=== PATIENT | male | born 1970 | race Caucasian/White ===

== ENCOUNTER 2024-10-04 06:03 | Inpatient (IN) | payer BC ==
--- NOTE | 2024-10-04 06:28 | ED ---
SOB HPI - General Chief Complaint: Shortness of Breath Stated Complaint: Difficulty Breathing Time Seen by Provider: 10/04/24 06:24 Source: patient, family, RN notes reviewed Mode of arrival: wheelchair Limitations: no limitations - History of Present Illness Initial Comments: 53-year-old male with a past medical history significant of asthma and hypert ension presenting to the ER for evaluation of shortness of breath. He reports over the past couple of days he has had progressively worsening shortness of breath. Family, at bedside, states he is having difficulty even walking from living room to bathroom without feeling short of breath. Patient has tried inhaler without relief of symptoms. He denies any chest discomfort, dizziness, lightheadedness. Patient denies history of DVTs or PEs. No blood thinner use or recent travel. No history of CT or cardiac stent placement. No home oxygen use. Positive orthopnea. Patient states he has not been able to follow-up with PCP given insurance issues. He denies any fevers, chills, cough, congestion, sore throat, nausea/vomiting, abdominal pain, constipation/diarrhea, urinary complaints, peripheral edema. Patient does report he has a known valve issue this was evaluated at [facility]. He does follow-up with cardiology, Dr. Ngo. Admits to smoking. - Related Data Home Medications Medication Instructions Recorded Confirmed No Known Home Medications 10/04/24 10/04/24 Allergies Allergy/AdvReac Type Severity Reaction Status Date / Time ibuprofen [From Motrin] Allergy congestion Verified 10/04/24 08:56 & sneezing iodine Allergy Anaphylaxis Verified 10/04/24 08:56 to Shellfish shellfish derived [Shellfish] Allergy Anaphylaxis Verified 10/04/24 08:56 Review of Systems ROS Statement: Those systems with pertinent positive or pertinent negative responses have been documented in the HPI. ROS Other: All systems not noted in ROS Statement are negative. Past Medical History Past Medical History: Hypertension History of Any Multi-Drug Resistant Organisms: None Reported Past Surgical History: Hernia Repair Past Psychological History: No Psychological Hx Reported Smoking Status: Current some day smoker, Former smoker Past Alcohol Use History: None Reported Past Drug Use History: None Reported General Exam Limitations: no limitations General appearance: alert, in no apparent distress ENT exam: Present: normal exam, normal oropharynx, mucous membranes moist Respiratory exam: Present: wheezes (Mild throughout all lung carreon) Cardiovascular Exam: Present: regular rate, normal rhythm, normal heart sounds. Absent: systolic murmur, diastolic murmur, rubs, gallop, clicks Extremities exam: Present: normal inspection, full ROM, normal capillary refill. Absent: tenderness, pedal edema, joint swelling, calf tenderness Neurological exam: Present: alert, oriented X3, CN II-XII intact Skin exam: Present: warm, dry, intact, normal color. Absent: rash Course Vital Signs 10/04/24 10/04/24 10/04/24 06:05 06:23 06:36 Temperature 97.7 F Pulse Rate 98 85 Respiratory 20 22 20 Rate Blood Pressure 165/108 O2 Sat by Pulse 98 Oximetry 10/04/24 10/04/24 10/04/24 06:42 07:16 08:42 Temperature 98.1 F Pulse Rate 87 87 92 Respiratory 18 18 18 Rate Blood Pressure 162/113 165/115 O2 Sat by Pulse 94 L 96 Oximetry 10/04/24 09:26 Temperature Pulse Rate 93 Respiratory 16 Rate Blood Pressure 168/127 O2 Sat by Pulse 97 Oximetry - Reevaluation(s) Reevaluation #1: 10/04/24 09:27 Discussed with sound physician, , for admission. Medical Decision Making - Medical Decision Making Was pt. sent in by a medical professional or institution (Dr. PA, VAT OVERHAULER, urgent care, hospital, or senior care...) When possible be specific @ -No Did you speak to anyone other than the patient for history (EMS, parent, family, police, friend...)? What history was obtained from this source @ -Family, at bedside, aiding in HPI and past medical history Did you review nursing and triage notes (agree or disagree)? Why? @ -I reviewed and agree with nursing and triage notes Were old charts reviewed (outside hosp., previous admission, EMS record, old EKG, old radiological studies, urgent care reports/EKG's, senior care records)? Report findings @ -No old charts were reviewed Differential Diagnosis (chest pain, altered mental status, abdominal pain women, abdominal pain men, vaginal bleeding, weakness, fever, dyspnea, syncope, headache, dizziness, GI bleed, back pain, seizure, CVA, palpatations, mental health, musculoskeletal)? @ -Differential Dyspnea:Coronary syndrome, arrhythmia, tamponade, asthma, COPD, pulmonary embolism, pneumonia, pneumothorax, pulmonary effusion, anaphylaxis, diabetic ketoacidosis, flailed chest, pulmonary contusion, diaphragmatic rupture, anemia, neuromuscular, this is not meant to be an all-inclusive list. EKG interpreted by me (3pts min.). @ -As above X-rays interpreted by me (1pt min.). @ -CXR Interdry me markable for pulmonary vascular congestion CT interpreted by me (1pt min.). @ -CTA chest negative for acute evidence of pulmonary embolism. Small bilateral effusions with bilateral areas of groundglass opacities likely reflecting alveolar edema. Focal 1.1 cm left midlung nodule or nodular consolidation. U/S interpreted by me (1pt. min.). @ -None done What testing was considered but not performed or refused? (CT, X-rays, U/S, labs)? Why? @ -None What meds were considered but not given or refused? Why? @ -None Did you discuss the management of the patient with other professionals (professionals i.e. , PA, VAT OVERHAULER, lab, RT, psych nurse, social work professor, silver wrapper, teacher, veterinary medical officer, rifle case repairer)? Give summary @ -Yes, case discussed with sound physician, Dr. Nesbitt for admission. Was smoking cessation discussed for >3mins.? @ -I discussed smoking cessation for greater than 3 minutes. The risk of smoking were discussed with the patient including but not limited to risks of cancer, stroke, coronary artery disease and COPD. Also discussed with patient were multiple methods of quitting smoking. Lastly we discussed the financial cost of smoking. Was critical care preformed (if so, how long)? @ -No Were there social determinants of health that impacted care today? How? (Homelessness, low income, unemployed, alcoholism, drug addiction, transportation, low edu. Level, literacy, decrease access to med. care, fdc, rehab)? @ -Patient recently has been uninsured and unable to follow-up with PCP Was there de-escalation of care discussed even if they declined (Discuss DNR or withdrawal of care, Hospice)? DNR status @ -No What co-morbidities impacted this encounter? (DM, HTN, Smoking, COPD, CAD, Cancer, CVA, ARF, Chemo, Hep., AIDS, mental health diagnosis, sleep apnea, morbid obesity)? @ -Hypertension, asthma, valvular disorder(patient unsure details of this) Was patient admitted / discharged? Hospital course, mention meds given and route, prescriptions, significant lab abnormalities, going to OR and other pertinent info. @ -Admitted. 53-year-old male presented the ER for evaluation of dyspnea. Patient hypertensive 165/108 is otherwise within acceptable limits. Patient had no signs of acute distress nontoxic-appearing. No conversational dyspnea. There is wheezing noted in all lung carreon. Laboratory studies obtained in the ER consistent with fluid overloaded state, BNP 11,400. Elevated troponin 0.064. D-dimer also elevated 1.39 for which CTA chest was obtained and negative for acute evidence of PE. CTA significant for bilateral pleural effusions with a lveolar edema. There is a lung nodule noted advising close follow-up. Patient was premedicated with IV Solu-Medrol, Pepcid and Benadryl given iodine allergy for CTA. Chest x-ray significant for pulmonary vascular congestion. Patient provided with DuoNeb, aspirin and IV Lasix. Fluids held given fluid overloaded state. Upon reevaluation, patient resting comfortably on stretcher no signs of acute distress. Patient 98% on room air. As patient complaining of continued shortness of breath patient was placed on 2 L nasal cannula oxygen for comfort not hypoxic. Patient educated on today's findings including possibility of lung nodule and is agreeable for admission. Admission considered and accepted by sound physician, , for evaluation of CHF. Echocardiogram and serial troponins ordered. Cardiology on consult. Patient admitted in stable condition. Case discussed with ED attending, Dr. Rosenthal Undiagnosed new problem with uncertain prognosis? @ -No Drug Therapy requiring intensive monitoring for toxicity (Heparin, Nitro, Insulin, Cardizem)? @ -No Were any procedures done? @ -No Diagnosis/symptom? @ -CHF/elevated troponin Acute, or Chronic, or Acute on Chronic? @ -Acute Uncomplicated (without systemic symptoms) or Complicated (systemic symptoms)? @ -Complicated Side effects of treatment? @ -No Exacerbation, Progression, or Severe Exacerbation? @ -No Poses a threat to life or bodily function? How? (Chest pain, USA, CT, pneumonia, PE, COPD, DKA, ARF, appy, cholecystitis, CVA, Diverticulitis, Homicidal, Suicidal, threat to staff... and all critical care pts) @ -Yes, can lead to hypoxia. cannot rule out ACS - Lab Data Result diagrams: 10/04/24 06:15 10/04/24 06:15 Lab Results 10/04/24 10/04/24 10/04/24 Range/Units 06:15 06:15 06:15 WBC 8.28 (4.50-10.00) 10*3/uL RBC 4.55 (4.40-5.60) 10*6/uL Hgb 12.9 L (13.0-17.0) g/dL Hct 41.2 (39.6-50.0) % MCV 90.5 (80.0-97.0) fL MCH 28.4 (27.0-32.0) pg MCHC 31.3 L (32.0-37.0) g/dL Plt Count 233 (140-440) 10*3/uL MPV 11.6 (9.5-12.2) fL Immature Gran % (Auto) 0.1 % Neutrophils % 66.8 % Lymphocytes % 18.4 % Monocytes % 6.9 % Eosinophils % 7.0 % Basophils % 0.8 % Immature Gran # 0.01 (0.00-0.04) 10*3/uL Neutrophils # 5.53 (1.80-7.70) 10*3/uL Lymphocytes # 1.52 (0.90-5.00) 10*3/uL Monocytes # 0.57 (0.20-1.00) 10*3/uL Eosinophils # 0.58 H (0.04-0.35) 10*3/uL Basophils # 0.07 (0.00-0.10) 10*3/uL PT 10.3 (10.0-12.5) sec INR 0.9 (<1.2) APTT 23.4 (22.0-30.0) sec D-Dimer 1.39 H (<0.60) mg/L FEU Sodium 143 (137-145) mmol/L Potassium 3.9 (3.5-5.1) mmol/L Chloride 114 H (98-107) mmol/L Carbon Dioxide 19 L (22-30) mmol/L Anion Gap 10 mmol/L BUN 27 H (9-20) mg/dL Creatinine 1.49 H (0.66-1.25) mg/dL Est GFR (CKD-EPI)AfAm 61 (>60 ml/min/1.73 sqM) Est GFR (CKD-EPI)NonAf 53 (>60 ml/min/1.73 sqM) Glucose 117 H (74-99) mg/dL Plasma Lactic Acid Tanner (0.7-2.0) mmol/L Calcium 8.8 (8.4-10.2) mg/dL Magnesium 1.9 (1.6-2.3) mg/dL Total Bilirubin 0.4 (0.2-1.3) mg/dL AST 52 (17-59) U/L ALT 62 H (4-49) U/L Alkaline Phosphatase 117 (38-126) U/L Troponin I (0.000-0.034) ng/mL NT-Pro-B Natriuret Pep pg/mL Total Protein 6.4 (6.3-8.2) g/dL Albumin 3.7 (3.5-5.0) g/dL Influenza Type A (PCR) (Not Detectd) Influenza Type B (PCR) (Not Detectd) RSV (PCR) (Not Detectd) SARS-CoV-2 (PCR) (Not Detectd) 10/04/24 10/04/24 10/04/24 Range/Units 06:15 06:15 06:15 WBC (4.50-10.00) 10*3/uL RBC (4.40-5.60) 10*6/uL Hgb (13.0-17.0) g/dL Hct (39.6-50.0) % MCV (80.0-97.0) fL MCH (27.0-32.0) pg MCHC (32.0-37.0) g/dL Plt Count (140-440) 10*3/uL MPV (9.5-12.2) fL Immature Gran % (Auto) % Neutrophils % % Lymphocytes % % Monocytes % % Eosinophils % % Basophils % % Immature Gran # (0.00-0.04) 10*3/uL Neutrophils # (1.80-7.70) 10*3/uL Lymphocytes # (0.90-5.00) 10*3/uL Monocytes # (0.20-1.00) 10*3/uL Eosinophils # (0.04-0.35) 10*3/uL Basophils # (0.00-0.10) 10*3/uL PT (10.0-12.5) sec INR (<1.2) APTT (22.0-30.0) sec D-Dimer (<0.60) mg/L FEU Sodium (137-145) mmol/L Potassium (3.5-5.1) mmol/L Chloride (98-107) mmol/L Carbon Dioxide (22-30) mmol/L Anion Gap mmol/L BUN (9-20) mg/dL Creatinine (0.66-1.25) mg/dL Est GFR (CKD-EPI)AfAm (>60 ml/min/1.73 sqM) Est GFR (CKD-EPI)NonAf (>60 ml/min/1.73 sqM) Glucose (74-99) mg/dL Plasma Lactic Acid Tanner 0.9 (0.7-2.0) mmol/L Calcium (8.4-10.2) mg/dL Magnesium (1.6-2.3) mg/dL Total Bilirubin (0.2-1.3) mg/dL AST (17-59) U/L ALT (4-49) U/L Alkaline Phosphatase (38-126) U/L Troponin I 0.064 H* (0.000-0.034) ng/mL NT-Pro-B Natriuret Pep 66539 pg/mL Total Protein (6.3-8.2) g/dL Albumin (3.5-5.0) g/dL Influenza Type A (PCR) (Not Detectd) Influenza Type B (PCR) (Not Detectd) RSV (PCR) (Not Detectd) SARS-CoV-2 (PCR) (Not Detectd) 10/04/24 Range/Units 06:54 WBC (4.50-10.00) 10*3/uL RBC (4.40-5.60) 10*6/uL Hgb (13.0-17.0) g/dL Hct (39.6-50.0) % MCV (80.0-97.0) fL MCH (27.0-32.0) pg MCHC (32.0-37.0) g/dL Plt Count (140-440) 10*3/uL MPV (9.5-12.2) fL Immature Gran % (Auto) % Neutrophils % % Lymphocytes % % Monocytes % % Eosinophils % % Basophils % % Immature Gran # (0.00-0.04) 10*3/uL Neutrophils # (1.80-7.70) 10*3/uL Lymphocytes # (0.90-5.00) 10*3/uL Monocytes # (0.20-1.00) 10*3/uL Eosinophils # (0.04-0.35) 10*3/uL Basophils # (0.00-0.10) 10*3/uL PT (10.0-12.5) sec INR (<1.2) APTT (22.0-30.0) sec D-Dimer (<0.60) mg/L FEU Sodium (137-145) mmol/L Potassium (3.5-5.1) mmol/L Chloride (98-107) mmol/L Carbon Dioxide (22-30) mmol/L Anion Gap mmol/L BUN (9-20) mg/dL Creatinine (0.66-1.25) mg/dL Est GFR (CKD-EPI)AfAm (>60 ml/min/1.73 sqM) Est GFR (CKD-EPI)NonAf (>60 ml/min/1.73 sqM) Glucose (74-99) mg/dL Plasma Lactic Acid Tanner (0.7-2.0) mmol/L Calcium (8.4-10.2) mg/dL Magnesium (1.6-2.3) mg/dL Total Bilirubin (0.2-1.3) mg/dL AST (17-59) U/L ALT (4-49) U/L Alkaline Phosphatase (38-126) U/L Troponin I (0.000-0.034) ng/mL NT-Pro-B Natriuret Pep pg/mL Total Protein (6.3-8.2) g/dL Albumin (3.5-5.0) g/dL Influenza Type A (PCR) Not Detected (Not Detectd) Influenza Type B (PCR) Not Detected (Not Detectd) RSV (PCR) Not Detected (Not Detectd) SARS-CoV-2 (PCR) Not Detected (Not Detectd) - EKG Data -: EKG Interpreted by Me EKG Comments: EKG taken at 6: 15 showing a sinus rhythm. Inverted T waves lateral leads. No ST segment elevations or depressions. Ventricular rate 86, MO interval 178, QRS duration 114, QT/QTc 383/426 - Radiology Data Radiology results: report reviewed, image reviewed Disposition Clinical Impression: Congestive heart failure, Elevated troponin Disposition: ADMITTED IP TO THIS HOSP Condition: Stable Referrals: None,Stated [Primary Care Provider] - 1-2 days Time of Disposition: 09:36
[2024-10-04] MEDS: IPRATROPIUM-ALBUTEROL 3 ML NEB INHALATION STA (06:35)
[2024-10-04 06:43] LABS: Basophils # (A) 0.07 10*3/uL (0.00-0.10); Basophils % (A) 0.8 %; Eosinophils # (A) 0.58 10*3/uL (0.04-0.35); HCT 41.2 % (39.6-50.0); HGB 12.9 g/dL (13.0-17.0); Lymphocytes # (A) 1.52 10*3/uL (0.90-5.00); Lymphocytes % (A) 18.4 %; MCH 28.4 pg (27.0-32.0); MCHC 31.3 g/dL (32.0-37.0); MCV 90.5 fL (80.0-97.0); Mean Platelet Volume 11.6 fL (9.5-12.2); Monocytes # (A) 0.57 10*3/uL (0.20-1.00); Monocytes % (A) 6.9 %; Neutrophils # (A) 5.53 10*3/uL (1.80-7.70); Neutrophils % (A) 66.8 %; Platelet Count 233 10*3/uL (140-440); RBC 4.55 10*6/uL (4.40-5.60); RDW 16.4 % (11.5-14.5); WBC 8.28 10*3/uL (4.50-10.00)
[2024-10-04 06:51] LABS: ALT 62 U/L (4-49); AST 52 U/L (17-59); African American GFR (CKD) 61 (>60 ml/min/1.73 sqM); Albumin 3.7 g/dL (3.5-5.0); Alkaline Phosphatase 117 U/L (38-126); Anion Gap 10 mmol/L; Blood Urea Nitrogen 27 mg/dL (9-20); Calcium 8.8 mg/dL (8.4-10.2); Carbon Dioxide 19 mmol/L (22-30); Chloride 114 mmol/L (98-107); Glucose 117 mg/dL (74-99); Magnesium 1.9 mg/dL (1.6-2.3); Non-African American GFR(CKD) 53 (>60 ml/min/1.73 sqM); Potassium 3.9 mmol/L (3.5-5.1); Sodium 143 mmol/L (137-145); Total Bilirubin 0.4 mg/dL (0.2-1.3); Total Protein 6.4 g/dL (6.3-8.2)
--- NOTE | 2024-10-04 06:58 | XR ---
EXAMINATION TYPE: XR chest 1V portable DATE OF EXAM: 10/04/2024 COMPARISON: NONE CLINICAL INDICATION: Male, 53 years old with history of difficulty breathing; TECHNIQUE: 2 frontal views of the chest are obtained. FINDINGS: There is cardiomegaly with some increased interstitial markings bilaterally. No pleural e ffusion or pneumothorax seen bilaterally. The osseous structures are intact. IMPRESSION: Cardiomegaly with suspected mild interstitial edema. Correlate for suspected CHF exacerb ation/fluid overload state. [facility], , 10/04/2024 6:56 AM
[2024-10-04 07:18] LABS: INR 0.9 (<1.2); Partial Thromboplastin Time 23.4 sec (22.0-30.0); Prothrombin Time 10.3 sec (10.0-12.5)
[2024-10-04 07:39] LABS: Influenza A Not Detected (Not Detectd); Influenza B Not Detected (Not Detectd); RSV Not Detected (Not Detectd)
[2024-10-04] MEDS: FAMOTIDINE 20 MG/2 ML VIAL IV STA (08:36)
[2024-10-04] MEDS: methylPREDNISolone SOD SUCCI 125 MG/2 ML VIAL IV STA (08:36)
[2024-10-04] MEDS: diphenhydrAMINE 50 MG/ML 1 ML VIAL IVP STA (08:36)
[2024-10-04] MEDS: ASPIRIN 325 MG TAB PO STA (08:37)
--- NOTE | 2024-10-04 09:13 | CT ---
EXAMINATION TYPE: CT chest angio for PE DATE OF EXAM: 10/04/2024 COMPARISON: NONE CLINICAL INDICATION: Male, 53 years old with history of SOB elevated dimer, SOB, elevated D-dimer., TECHNIQUE: CTA scan of the thorax is performed with IV Contrast, patient injected with 80 ml mL of Isovue 370, p ulmonary embolism protocol. MIP Images are created on CT scanner and reviewed. CT DLP: 822.9 mGycm. Automated Exposure Control for Dose Reduction was Utilized. FINDINGS: LUNGS: Small bilateral pleural effusions are seen. There are areas of groundglass opacity noted. Ther e is 11 mm nodule or nodular consolidation in left midlung axial image 76. No pneumothorax seen bilat erally. HEART: Size within normal limits. No significant coronary artery calcifications. MEDIASTINUM: There is satisfactory enhancement of the pulmonary artery and its branches, there is no CT evidence for pulmonary embolism. There are some prominent mediastinal lymph nodes. No pericardi al effusion is seen. OTHER: No additional significant abnormality is seen. IMPRESSION: 1. No CT evidence for acute pulmonary embolism. 2. Small bilateral pleural effusions with bilateral areas of ground glass opacity likely reflecting m ild alveolar edema. Findings consistent with fluid overload state. Correlate clinically. 3. Focal 1.1 cm left midlung nodule or nodular consolidation. Possible focal infiltrate/edema but volodymyr e nodule needs to be excluded. Advise CT follow-up in one to 2 months time to reassess. If persists t hen PET CT follow-up would be advised. [facility], , 10/04/2024 9:11 AM
[2024-10-04] MEDS ORDERED: NALOXONE 0.4 MG/ML 1 ML VIAL IV PRN (09:26)
[2024-10-04] MEDS: FUROSEMIDE 10 MG/ML 4 ML VIAL IV STA (09:27)
[2024-10-04] MEDS: lisinopriL 20 MG TAB PO SCH (13:42)
[2024-10-04] MEDS: SPIRONOLACTONE 25 MG TAB PO SCH (13:42)
--- NOTE | 2024-10-04 14:35 | P.HPIM ---
History of Present Illness H&P Date: 10/04/24 Chief Complaint: Shortness of breath Patient is a 53 year old male with past medical history of hypertension, asthma presented to the ED with shortness of breath. He reports feeling winded while walking out from his work place 3-4 days ago. He reports progressive worsening o f his shortness of breath in the past couple of days. This morning he was having difficulty even walking from the living room to the bathroom. He also mentions going to urgent care 3 weeks ago for bronchitis and he was given an inhaler that he used last night but it didn't help with his symptoms. Denies using oxygen at home. Denies history of blood clots. Does not use a blood thinner. He also mention not being able to follow-up with his PCP and not taking his medications for regular due to insurance issues. He mentions being admitted at [facility] 2 year ago and at the time he was told that he had a valvular issue. His band splitter is Dr. Ngo. Denies fever, chills, cough, chest pain, palpitations, abdominal pain, nausea, vomiting, hematuria, dysuria, hematochezia, melena, headache, slurred speech, numbness, tingling, dizziness, lightheadedness, blurred vision, double vision. ED documentation reviewed. In the ED patient was treated with aspirin 325 mg, famotidine 20 mg, furosemide 40 mg, DuoNeb, diphenhydramine 50 mg, Solu-Medrol 125 mg Vitals on admission T 97.7 F, ID 98 bpm, RR 20, BP 165/108, SpO2 98% on room air Most recent vitals T 98.1 F, ID 92 bpm, BP 161/114, SpO2 94% on room air EKG independently interpreted as sinus rhythm, T wave inversion in V3-V6, I, aVL Chest x-ray shows cardiomegaly with suspected mild interstitial edema, correlate for suspected CHF exacerbation/fluid overload state Chest CTA shows no evidence for acute pulmonary embolism, small bilateral pleural effusion with bilateral areas of groundglass opacity likely reflecting mild alveolar edema, findings consistent with fluid overload state, focal 1.1 cm left midlung nodule nodular consolidation, possible focal infiltrate/edema but true nodule needs to be excluded Labs on admission show WBC 8.28, hemoglobin 12.9, D-dimer 1.39, sodium 143, potassium 3.9, bicarb 19, BUN 27, creatinine 1.49, magnesium 1.9, ALT 62, NT- proBNP 01983 Troponin I 0.064, 0.067 Respiratory panel is negative Review of systems: Pertinent positives and negatives as discussed in HPI, a complete review of systems was performed and all other systems are negative. Social history: Tobacco: Current everyday smoker, 4-5 cigarettes a day Alcohol: Denies use Recreational drugs: Former use Travel: None Sick contacts: None Physical examination: Vital signs reviewed General: nontoxic, no distress, appears at stated age Derm: warm, dry, intact Head: atraumatic, normocephalic, symmetric Eyes: EOMI, anicteric sclera Mouth: no lip lesion, mucus membranes moist Cardiovascular: S1 S2 reg, no murmur Lungs: CTA bilateral, no rhonchi, no rales, no accessory muscle use Abdominal: soft, non-tender to palpation Extremities: No cyanosis, clubbing, or pedal edema. Neuro: Alert, Oriented, Gross neurological examination did not reveal any focal deficits. Psych: well appearing, appropriate affect Assessment/Plan: Patient is a 53 year old male with past medical history of hypertension, asthma presented to the ED with shortness of breath. Patient admitted to internal medicine service. Active: #. Acute exacerbation of CHF #. Shortness of breath #. Hypertension Chest x-ray shows cardiomegaly with suspected mild interstitial edema, correlate for suspected CHF exacerbation/fluid overload state BNP 44743, BP 161/114, SpO2 94% on room air Start IV lasix 20 mg Q12HR, monitor electrolytes, Lisinopril 20 mg PO daily, Aldactone 25 mg PO daily Obtain echocardiogram Continue supplemental oxygen Monitor vital signs Consult cardiology #. Troponin elevation, likely Type II NSTEMI Troponin I 0.064, 0.067 EKG independently interpreted as sinus rhythm, T wave inversion in V3-V6, I, aVL Start Aspirin 81 mg PO daily, Atorvastatin 40 mg PO HS Obtain lipid panel, A1c, TSH Continue to trend troponin Continue telemetry monitoring #. KALE versus CKD?, unknown baseline creatinine 1.49, BUN 27 Obtain UA, Renal bladder ultrasound Monitor BMP #. Elevated D-dimer D-dimer 1.39 Chest CTA shows no evidence for acute pulmonary embolism, small bilateral pleural effusion with bilateral areas of groundglass opacity likely reflecting mild alveolar edema, findings consistent with fluid overload state, focal 1.1 cm left midlung nodule nodular consolidation, possible focal infiltrate/edema but true nodule needs to be excluded F: None E: Replete as required N: Heart healthy diet A: Ambulatory DVT prophylaxis: Lovenox 40 mg SQ daily The patient is admitted with an anticipated more than 2 midnight stay for evaluation of shortness of breath CODE STATUS: Full code Discussed with: Patient Anticipated discharge place: Pending clinical course Dictation was produced using [employer] dictation software. please excuse any grammatical, word or spelling errors. Calli Villanueva MD PGY-1 IM I have seen and evaluated the patient today. Discussed with the resident and agree with the residents finding and plan as documented in the resident's note. Changes highlighted in blue font. Past Medical History Past Medical History: Hypertension History of Any Multi-Drug Resistant Organisms: None Reported Past Surgical History: Hernia Repair Past Psychological History: No Psychological Hx Reported Smoking Status: Current some day smoker, Former smoker Past Alcohol Use History: None Reported Past Drug Use History: None Reported Medications and Allergies Home Medications Medication Instructions Recorded Confirmed Type No Known Home Medications 10/04/24 10/04/24 History Allergies Allergy/AdvReac Type Severity Reaction Status Date / Time ibuprofen [From Motrin] Allergy congestion Verified 10/04/24 08:56 & sneezing iodine Allergy Anaphylaxis Verified 10/04/24 08:56 to Shellfish shellfish derived [Shellfish] Allergy Anaphylaxis Verified 10/04/24 08:56 Physical Exam Vitals: Vital Signs Temp Pulse Resp BP Pulse Ox 10/04/24 11:00 92 18 161/120 96 10/04/24 09:26 93 16 168/127 97 10/04/24 08:42 92 18 165/115 96 10/04/24 07:16 98.1 F 87 18 162/113 94 L 10/04/24 06:42 87 18 10/04/24 06:36 85 20 10/04/24 06:23 22 10/04/24 06:05 97.7 F 98 20 165/108 98 Intake and Output 10/03/24 10/04/24 10/04/24 22:59 06:59 14:59 Other: Weight 127.006 kg Results CBC & Chem 7: 10/04/24 06:15 10/04/24 06:15 Labs: Abnormal Lab Results - Last 24 Hours (Table) 10/04/24 10/04/24 10/04/24 Range/Units 06:15 06:15 06:15 Hgb 12.9 L (13.0-17.0) g/dL MCHC 31.3 L (32.0-37.0) g/dL Eosinophils # 0.58 H (0.04-0.35) 10*3/uL D-Dimer 1.39 H (<0.60) mg/L FEU Chloride 114 H (98-107) mmol/L Carbon Dioxide 19 L (22-30) mmol/L BUN 27 H (9-20) mg/dL Creatinine 1.49 H (0.66-1.25) mg/dL Glucose 117 H (74-99) mg/dL ALT 62 H (4-49) U/L Troponin I (0.000-0.034) ng/mL 10/04/24 10/04/24 Range/Units 06:15 09:34 Hgb (13.0-17.0) g/dL MCHC (32.0-37.0) g/dL Eosinophils # (0.04-0.35) 10*3/uL D-Dimer (<0.60) mg/L FEU Chloride (98-107) mmol/L Carbon Dioxide (22-30) mmol/L BUN (9-20) mg/dL Creatinine (0.66-1.25) mg/dL Glucose (74-99) mg/dL ALT (4-49) U/L Troponin I 0.064 H* 0.067 H* (0.000-0.034) ng/mL
--- NOTE | 2024-10-04 14:42 | US ---
EXAMINATION TYPE: US kidneys/renal and bladder DATE OF EXAM: 10/04/2024 COMPARISON: NONE CLINICAL INDICATION: Male, 53 years old with history of evens vs ckd?; Hx HTN; Patient denies any signs , symptoms, or other relevant history TECHNIQUE: Grayscale imaging of the bilateral kidneys and urinary bladder: FINDINGS: EXAM MEASUREMENTS: Right Kidney: 11.5 x 4.1 x 5.6 cm Left Kidney: 11.2 x 5.8 x 6.0 cm Post Void Residual Volume: NA mL Right Kidney: wnl, no evidence for hydronephrosis, mass or renal calculus. Left Kidney: wnl, no evidence for hydronephrosis, mass or renal calculus. Bladder: wnl Bilateral Jets seen: Yes Normal Post Void Residual: NA There is no evidence for hydronephrosis at this point in time. No nephrolithiasis is seen. No megan s are identified. The urinary bladder is anechoic. IMPRESSION: 1. Unremarkable renal ultrasound [facility], , 10/04/2024 2:40 PM
[2024-10-04 15:30] LABS: Appearance,Urine Clear (Clear); Bilirubin,Urine Negative (Negative); Blood,Urine Negative (Negative); Color,Urine Colorless; Glucose,Urine (UA) Negative (Negative); Ketones,Urine Negative (Negative); Leukocyte Esterase,Urine Negative (Negative); Nitrite,Urine Negative (Negative); Protein,Urine Negative (Negative); Urobilinogen,Urine <2.0 mg/dL (<2.0)
--- NOTE | 2024-10-04 17:24 | CA ---
Transthoracic Echo Report Name: Nitin Monk Age: 53 Gender: M : 1970 Exam Date: 10/04/2024 11:59 Exam Location: [facility] Ht (in): 72 Wt (lb): 280 Ordering Physician: Kennedi Harris Attending/Referring Phys: Neuropsychiatric Aide Fely [place] RDCS Procedure CPT: Indications: chf/SOB Cardiac Hx: Technical Quality: Fair Contrast 1: Definity Total Dose (mL): 3 Contrast 2: Total Dose (mL): MEASUREMENTS (Male / Female) Normal Values 2D ECHO LV Diastolic Diameter PLAX 6.6 cm 4.2 - 5.9 / 3.9 - 5.3 cm LV Systolic Diameter PLAX 5.9 cm IVS Diastolic Thickness 1.2 cm 0.6 - 1.0 / 0.6 - 0.9 cm LVPW Diastolic Thickness 1.0 cm 0.6 - 1.0 / 0.6 - 0.9 cm LV Relative Wall Thickness 0.3 LVOT Diameter 2.5 cm Aortic Root Diameter 3.7 cm LV Diastolic Volume MOD BP 289.5 cm??? 67 - 155 / 56 - 104 cm??? LV Systolic Volume MOD BP 232.1 cm??? 22 - 58 / 19 - 49 cm??? LV Ejection Fraction MOD BP 19.8 % >= 55 % LV Cardiac Index MOD BP 2126.8 cm???/min???m??? LV Diastolic Volume MOD 4C 268.5 cm??? LV Systolic Volume MOD 4C 201.6 cm??? LV Ejection Fraction MOD 4C 24.9 % LV Cardiac Index MOD 4C 2480.4 cm???/min???m??? LV Diastolic Length 4C 10.3 cm LV Systolic Length 4C 10.1 cm LV Diastolic Volume MOD 2C 290.0 cm??? LV Systolic Volume MOD 2C 247.1 cm??? LV Ejection Fraction MOD 2C 14.8 % LV Cardiac Index MOD 2C 1591.5 cm???/min???m??? LV Diastolic Length 2C 11.2 cm LV Systolic Length 2C 11.0 cm LA Volume 187.8 cm??? 18 - 58 / 22 - 52 cm??? LA Volume Index 72.5 cm???/m??? 16 - 28 cm???/m??? Ascending Aorta Diameter 3.7 cm DOPPLER AV Peak Velocity 114.7 cm/s AV Peak Gradient 5.3 mmHg AV Mean Velocity 93.3 cm/s AV Mean Gradient 3.7 mmHg AV Velocity Time Integral 18.5 cm LVOT Peak Velocity 111.7 cm/s LVOT Peak Gradient 5.0 mmHg LVOT Velocity Time Integral 18.8 cm LVOT Stroke Volume 89.5 cm??? LVOT Stroke Volume Index 36.4 ml/m??? LVOT Cardiac Index 3318.3 cm???/min???m??? AV Area Cont Eq vti 4.8 cm??? AV Area Cont Eq pk 4.6 cm??? MV Area PHT 10.0 cm??? Mitral E Point Velocity 123.7 cm/s Mitral A Point Velocity 46.8 cm/s Mitral E to A Ratio 2.6 MV Deceleration Time 75.9 ms TR Peak Velocity 325.1 cm/s TR Peak Gradient 42.3 mmHg Right Atrial Pressure 5.0 mmHg Pulmonary Artery Systolic Pressu 47.3 mmHg Right Ventricular Systolic Press 47.3 mmHg PV Peak Velocity 83.5 cm/s PV Peak Gradient 2.8 mmHg FINDINGS Left Ventricle Left ventricular ejection fraction is estimated at 20-25 %. Mildly increased septal wall thickness. Moderately increased left ventricular diastolic diameter. Severely increased left ventricular diastolic volume. Severely increased left ventricular systolic volume. Severely decreased left ventricular ejection fraction. Severely reduced global left ventricular systolic function. Right Ventricle Mild right ventricular dilatation. Moderate pulmonary hypertension. Right Atrium Normal right atrial size. Left Atrium Severely increased left atrial volume. Mitral Valve Structurally normal mitral valve. No mitral stenosis. Moderate mitral regurgitation. Aortic Valve Trileaflet aortic valve. Aortic valve sclerosis. No aortic stenosis. Trace aortic regurgitation. Tricuspid Valve Structurally normal tricuspid valve. No tricuspid stenosis. Moderate tricuspid regurgitation. Pulmonic Valve Structurally normal pulmonic valve. No pulmonic stenosis. No pulmonic regurgitation. Pericardium No pericardial effusion. No pleural effusion. Aorta Normal size aortic root and proximal ascending aorta. CONCLUSIONS LVEF 20% Severely dilated LV cavity with severely reduced systolic function Mild RV dilatation with reduced systolic function. Moderate pulmonary hypertension RVSP 47 mmHg Severely dilated LA Moderate mitral regurgitation. Moderate tricuspid regurgitation. Previewed by: Dr Madi Balderas (Electronically Signed) Final Date: 04 October 2024 17:23
[2024-10-04] MEDS: ATORVASTATIN 40 MG TAB PO SCH (19:57)
[2024-10-04] MEDS: FUROSEMIDE 10 MG/ML 2 ML VIAL IV SCH (19:57)
[2024-10-04] MEDS ORDERED: FUROSEMIDE 10 MG/ML 4 ML VIAL IV SCH (21:00)
[2024-10-05 08:31] LABS: HCT 44.1 % (39.6-50.0); HGB 14.2 g/dL (13.0-17.0); MCH 28.7 pg (27.0-32.0); MCHC 32.2 g/dL (32.0-37.0); MCV 89.1 fL (80.0-97.0); Mean Platelet Volume 11.2 fL (9.5-12.2); Platelet Count 328 10*3/uL (140-440); RBC 4.95 10*6/uL (4.40-5.60); RDW 16.5 % (11.5-14.5); WBC 13.56 10*3/uL (4.50-10.00)
[2024-10-05 08:53] LABS: African American GFR (CKD) 55 (>60 ml/min/1.73 sqM); Anion Gap 9 mmol/L; Blood Urea Nitrogen 27 mg/dL (9-20); Calcium 9.2 mg/dL (8.4-10.2); Carbon Dioxide 26 mmol/L (22-30); Chloride 107 mmol/L (98-107); Glucose 107 mg/dL (74-99); Non-African American GFR(CKD) 47 (>60 ml/min/1.73 sqM); Sodium 142 mmol/L (137-145)
[2024-10-05] MEDS: ASPIRIN 81 MG PO SCH (09:00)
[2024-10-05] MEDS: ENOXAPARIN 40 MG/0.4 ML SYRINGE SQ SCH (09:00)
--- NOTE | 2024-10-05 11:30 | P.PN ---
Subjective Progress Note Date: 10/05/24 Principal diagnosis: Hospital course: Patient is a 53 year old male with past medical history of hypertension, asthma presented to the ED with shortness of breath. He reports feeling winded while walking out from his work place 3-4 days ago. He reports progressive worsening of his shortness of breath in the past couple of days. This morning he was hav ing difficulty even walking from the living room to the bathroom. He also mentions going to urgent care 3 weeks ago for bronchitis and he was given an inhaler that he used last night but it didn't help with his symptoms. Denies using oxygen at home. Denies history of blood clots. Does not use a blood thinner. He also mention not being able to follow-up with his PCP and not taking his medications for regular due to insurance issues. He mentions being admitted at [facility] 2 year ago and at the time he was told that he had a valvular issue. 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 Ngo. Denies fever, chills, cough, chest pain, palpitations, abdominal pain, nausea, vomiting, hematuria, dysuria, hematochezia, melena, headache, slurred speech, numbness, tingling, dizziness, lightheadedness, blurred vision, double vision. ED documentation reviewed. In the ED patient was treated with aspirin 325 mg, famotidine 20 mg, furosemide 40 mg, DuoNeb, diphenhydramine 50 mg, Solu-Medrol 125 mg 10/05/24: Patient is seen and examined at bedside today. []. Review of systems: Pertinent positives and negatives as discussed in HPI, a complete review of systems was performed and all other systems are negative. Vitals: Signs Reviewed, Pulse 103, BP 157/90 Physical examination: General: nontoxic, no distress, appears at stated age Derm: warm, dry, intact Head: atraumatic, normocephalic, symmetric Eyes: EOMI, anicteric sclera Mouth: no lip lesion, mucus membranes moist Cardiovascular: S1 S2 reg, no murmur Lungs: CTA bilateral, no rhonchi, no rales, no accessory muscle use Abdominal: soft, non-tender to palpation Extremities: No cyanosis, clubbing, or pedal edema. Neuro: Alert, Oriented, Gross neurological examination did not reveal any focal deficits. Psych: well appearing, appropriate affect Data Reviewed Today: Labs: WBC 13.56, BUN 27, creatinine 1.60, TSH 0.358, free T4 1.10 UA is unremarkable Imaging: Abdomen bladder ultrasound is unremarkable Echocardiogram shows EF 20 to 25%, severely dilated LV cavity with severely reduced systolic function, mild RV dilatation with reduced systolic function, moderate pulmonary hypertension RVSP 47 mmHg, severely dilated LA, moderate MR, moderate TR Assessment/Plan: Patient is a 53 year old male with past medical history of hypertension, asthma presented to the ED with shortness of breath. He has been diagnosed with CHF exacerbation with EF 20-25% and is placed on GDMT for heart failure. Active: #. Acute exacerbation of CHF #. Shortness of breath #. Hypertension Chest x-ray shows cardiomegaly with suspected mild interstitial edema, correlate for suspected CHF exacerbation/fluid overload state BNP 59872 Echocardiogram shows EF 20 to 25%, severely dilated LV cavity with severely r educed systolic function, mild RV dilatation with reduced systolic function, moderate pulmonary hypertension RVSP 47 mmHg, severely dilated LA, moderate MR, moderate TR Continue Lasix 20 mg Q12HR, Lisinopril 20 mg PO daily, Aldactone 25 mg PO daily Coreg 6.25 mg PO BID added Consider adding Farxiga once renal function improves Consider cardiac catheterization to evaluate for ischemic cardiomyopathy Continue supplemental oxygen as needed Monitor vital signs Monitor BMP Consulted cardiology, pending recommendations #. Troponin elevation, likely Type II NSTEMI Troponin I 0.064, 0.067 EKG independently interpreted as sinus rhythm, T wave inversion in V3-V6, I, aVL TSH 0.358, T4 1.10 Continue Aspirin 81 mg PO daily, Atorvastatin 40 mg PO HS Pending lipid panel, A1c Continue to trend troponin Continue telemetry monitoring #. KALE versus CKD?, unknown baseline creatinine 1.49, BUN 27 on admission UA is unremarkable Abdomen bladder ultrasound is unremarkable Monitor BMP #. Leukocytosis, likely reactive WBC 13.56 Monitor CBC #. Elevated D-dimer D-dimer 1.39 Chest CTA shows no evidence for acute pulmonary embolism, small bilateral pleural effusion with bilateral areas of groundglass opacity likely reflecting mild alveolar edema, findings consistent with fluid overload state, focal 1.1 cm left midlung nodule nodular consolidation, possible focal infiltrate/edema but true nodule needs to be excluded #. Sick euthyroid TSH 0.358, T4 1.10 Repeat TSH and T4 4-6 weeks post discharge on outpatient basis F: None E: Replete as required N: Heart healthy diet A: Ambulatory DVT prophylaxis: Lovenox 40 mg SQ daily Code status: FULL CODE Anticipated discharge place: Pending clinical course Anticipated discharge time: Pending clinical course Dictation was produced using kwiry dictation software. please excuse any grammatical, word or spelling errors. Calli Villanueva MD PGY-1 IM I have seen and evaluated the patient today. Discussed with the resident and agree with the residents finding and plan as documented in the resident's note. Changes highlighted in blue font. Objective - Vital Signs Vital signs: Vital Signs Temp 97.8 F 10/04/24 20:00 Pulse 103 H 10/05/24 04:00 Resp 16 10/05/24 04:00 BP 157/90 10/05/24 04:00 Pulse Ox 97 10/05/24 04:00 FiO2 Intake & Output 10/04/24 10/05/24 10/05/24 18:59 06:59 18:59 Intake Total 540 Output Total 4580 Balance -4580 540 Weight 127.006 kg 119.6 kg Intake: Oral 540 Output: Urine 4580 Other: Voiding Method Toilet - Labs CBC & Chem 7: 10/05/24 08:06 10/05/24 08:06 Labs: Abnormal Lab Results - Last 24 Hours (Table) 10/04/24 10/04/24 10/04/24 Range/Units 06:15 06:15 09:34 D-Dimer 1.39 H (<0.60) mg/L FEU Troponin I 0.064 H* 0.067 H* (0.000-0.034) ng/mL
[2024-10-05] MEDS: carvediloL 6.25 MG TAB PO SCH (18:04)
[2024-10-06 00:27] LABS: Chol/HDL Ratio 2.65 Ratio; LDL Cholesterol,Calculated 82.4 mg/dL (0.0-131.0); VLDL Calculation 14.24 mg/dL (5.00-40.00)
[2024-10-06] MEDS ORDERED: NITROGLYCERIN SL TABS 0.4 MG TAB SUBLINGUAL PRN (07:27)
[2024-10-06] MEDS ORDERED: ALPRAZolam 0.25 MG TAB PO PRN (07:27)
[2024-10-06] MEDS ORDERED: ASPIRIN 325 MG TAB PO STA (07:27)
[2024-10-06] MEDS ORDERED: ATORVASTATIN 80 MG TAB PO STA (07:27)
[2024-10-06] MEDS ORDERED: ALPRAZolam 0.5 MG TAB PO PRN (07:27)
--- NOTE | 2024-10-06 07:30 | P.CRDCN ---
History of Present Illness Consult date: 10/05/24 History of present illness: HISTORY OF PRESENTING ILLNESS: Patient is a 53-year-old with past medical history of hypertension, asthma presented to the hospital because of shortness of breath this has been getting worse over last 3 to 4 days. Denies any substernal chest pain however does report intermittent chest heaviness along with shortness of breath on occasions. Previously known to Dr. Ngo. Admission Vitals: 165/108, heart rate 98 bpm Admission Labs: Hb 12.8, D-dimer 1.39, potassium 3.9, creatinine 1.45, NT-proBNP 74839, magnesium 1.9, troponin 0.064, 0.67, Admission EKG: Sinus rhythm, intraventricular conduction delay with T wave inversions in lateral leads. No prior EKG to compare with in his Imaging: Chest x-ray shows mild increased interstitial markings signs of cystoscopy signs of mild pulmonary congestion. No signs of pulmonary consolidation consolidation Chest with angiogram shows small bilateral pleural effusion, mildly thickened septae suggestive of mild fluid overload, Prior cardiac testing: Echo from admission shows EF 20%, severely dilated LV cavity with severely reduced systolic dilatation with reduced systolic function, moderate pulmonary hypertension with RVSP of 47 mmHg, severe LA dilatation, moderate MR, moderate TR REVIEW OF SYSTEMS: 14 point review of system is negative except what is mentioned above in HPI. PHYSICAL EXAMINATION: Neck: Brisk carotid upstroke, no jugular venous distention. Lungs: Minimal crackles audible in bilateral bases. Heart: Regular rate and rhythm, S1-S2, no murmur or rub. Abdomen: Soft nontender, positive bowel sounds. Extremities: No edema, intact distal pulses. Neuro: Alert, oritented, no focal deficits. Detailed neuro exam was not performed. ASSESSMENT: # Newly diagnosed cardiomyopathy, EF of 20 to 25%, # Elevated troponin, likely NSTEMI # Acute HFrEF exacerbation # KALE PLAN: Aspirin, Lipitor, Coreg 6.25 mg twice daily Continue Lasix IV 20 twice daily, lisinopril 20 Further recommendations to follow Madi Balderas MD, FACC, RPVI Thank you for allowing [facility] to participate in this patient's care. Feel free to reach out in case of any followup questions. Past Medical History Past Medical History: Hypertension Additional Past Medical History / Comment(s): lt inguinal hernia and a "valve that doesn't close all th way" History of Any Multi-Drug Resistant Organisms: None Reported Past Surgical History: Hernia Repair Additional Past Surgical History / Comment(s): hiatal hernia repair. Past Psychological History: No Psychological Hx Reported Smoking Status: Current some day smoker, Former smoker Past Alcohol Use History: None Reported Past Drug Use History: None Reported Medications and Allergies Home Medications Medication Instructions Recorded Confirmed Type No Known Home Medications 10/04/24 10/04/24 History Allergies Allergy/AdvReac Type Severity Reaction Status Date / Time ibuprofen [From Motrin] Allergy congestion Verified 10/04/24 08:56 & sneezing iodine Allergy Anaphylaxis Verified 10/04/24 08:56 to Shellfish shellfish derived [Shellfish] Allergy Anaphylaxis Verified 10/04/24 08:56 Physical Exam Vitals: Vital Signs Temp Pulse Resp BP Pulse Ox 10/06/24 04:00 87 16 138/95 97 10/06/24 00:00 93 16 143/83 93 L 10/05/24 20:00 98.1 F 86 16 131/81 96 10/05/24 16:50 98.1 F 95 18 129/93 97 10/05/24 12:00 103 H 16 138/81 97 10/05/24 08:45 98.1 F 97 18 157/79 94 L Intake and Output 10/05/24 10/06/24 10/06/24 22:59 06:59 14:59 Intake Total 240 540 Output Total 1000 Balance -760 540 Intake: Oral 240 540 Output: Urine 1000 Other: Voiding Method Toilet Toilet # Voids 2 Weight 117.9 kg Results 10/05/24 08:06 10/05/24 08:06 Lipids 10/05/24 Range/Units 08:06 Triglycerides 71.20 (0.00-149.00) mg/dL Cholesterol 155.00 (0.00-200.00) mg/dL HDL Cholesterol 58.40 (40.00-60.00) mg/dL Cholesterol/HDL Ratio 2.65 Ratio CBC 10/05/24 Range/Units 08:06 WBC 13.56 H (4.50-10.00) 10*3/uL RBC 4.95 (4.40-5.60) 10*6/uL Hgb 14.2 (13.0-17.0) g/dL Hct 44.1 (39.6-50.0) % Plt Count 328 (140-440) 10*3/uL Comprehensive Metabolic Panel 10/05/24 Range/Units 08:06 Sodium 142 (137-145) mmol/L Potassium 4.0 (3.5-5.1) mmol/L Chloride 107 (98-107) mmol/L Carbon Dioxide 26 (22-30) mmol/L BUN 27 H (9-20) mg/dL Creatinine 1.62 H (0.66-1.25) mg/dL Glucose 107 H (74-99) mg/dL Calcium 9.2 (8.4-10.2) mg/dL Current Medications Generic Name Dose Route Start Last Admin Trade Name Freq PRN Reason Stop Dose Admin Acetaminophen 650 mg 10/04/24 09:26 Acetaminophen Tab 325 Mg Tab PO Q6HR PRN Mild Pain or Fever > 100.5 Alprazolam 0.25 mg 10/06/24 07:27 Alprazolam 0.25 Mg Tab PO Q6HR PRN Mild Anxiety Alprazolam 0.5 mg 10/06/24 07:27 Alprazolam 0.5 Mg Tab PO Q6HR PRN Moderate Anxiety Amlodipine Besylate 5 mg 10/06/24 09:00 Amlodipine 5 Mg Tab PO DAILY JORGE Aspirin 81 mg 10/05/24 09:00 10/05/24 09:00 Aspirin 81 Mg PO 81 mg DAILY JORGE Administration Atorvastatin Calcium 40 mg 10/04/24 21:00 10/05/24 19:39 Atorvastatin 40 Mg Tab PO 40 mg HS JORGE Administration Carvedilol 6.25 mg 10/05/24 17:30 10/06/24 06:16 Carvedilol 6.25 Mg Tab PO 6.25 mg BID-W/MEALS JORGE Administration Heparin Sodium (Porcine) 0 unit 10/06/24 07:26 Heparin Sodium 1,000 Un/Ml (10ml Vl) IV PER PROTOCOL PRN Low PTT Protocol Heparin Sodium/Sodium Chloride 250 mls @ 14.148 mls/hr 10/06/24 07:30 25,000 unit/ Sodium Chloride IV .[id number] JORGE Protocol 12 UNITS/KG/HR Heparin Sodium (Porcine) 10, 1,001 mls @ 999 mls/hr 10/07/24 07:00 000 unit/ Sodium Chloride IRRIGATION 10/07/24 23:00 ONCE PRN INTRA-OP Heparin Sodium (Porcine) 2,500 250.5 mls @ 250 mls/hr 10/07/24 07:00 unit/ Sodium Chloride IRRIGATION 10/07/24 23:00 ONCE PRN INTRA-OP Naloxone HCl 0.2 mg 10/04/24 09:26 Naloxone 0.4 Mg/Ml 1 Ml Vial IV Q2M PRN Opioid Reversal Nitroglycerin 0.4 mg 10/06/24 07:27 Nitroglycerin Sl Tabs 0.4 Mg Tab SUBLINGUAL Q5M PRN Chest Pain Spironolactone 25 mg 10/04/24 13:30 10/05/24 09:00 Spironolactone 25 Mg Tab PO 25 mg DAILY JORGE Administration Intake and Output 10/05/24 10/06/24 10/06/24 22:59 06:59 14:59 Intake Total 240 540 Output Total 1000 Balance -760 540 Intake: Oral 240 540 Output: Urine 1000 Other: Voiding Method Toilet Toilet # Voids 2 Weight 117.9 kg 10/05/24 08:06 10/05/24 08:06
--- NOTE | 2024-10-06 07:33 | P.PN ---
Subjective Progress Note Date: 10/06/24 HISTORY OF PRESENTING ILLNESS: Patient is a 53-year-old with past medical history of hypertension, asthma presented to the hospital because of shortness of breath this has been getting worse over last 3 to 4 days. Denies any substernal chest pain however does report intermittent chest heaviness along with shortness of breath on occasions. Previously known to Dr. Ngo. Admission Vitals: 165/108, heart rate 98 bpm Admission Labs: Hb 12.8, D-dimer 1.39, potassium 3.9, creatinine 1.45, NT-proBNP 57170, magnesium 1.9, troponin 0.064, 0.67, Admission EKG: Sinus rhythm, intraventricular conduction delay with T wave inversions in lateral leads. No prior EKG to compare with in his Imaging: Chest x-ray shows mild increased interstitial markings signs of cystoscopy signs of mild pulmonary congestion. No signs of pulmonary consolidation consolidation Chest with angiogram shows small bilateral pleural effusion, mildly thickened septae suggestive of mild fluid overload, Prior cardiac testing: Echo from admission shows EF 20%, severely dilated LV cavity with severely reduced systolic dilatation with reduced systolic function, moderate pulmonary hypertension with RVSP of 47 mmHg, severe LA dilatation, moderate MR, moderate TR Progress note 10/06/2024 Patient seen and examined at bedside this a.m. He denies any chest heaviness chest pressure symptoms. He does report increased fatigue shortness of breath symptoms however. BP 138/95, heart rate 87 bpm Creatinine on admission was 1.49, today it is 1.62 PHYSICAL EXAMINATION: Neck: Brisk carotid upstroke, mild elevated jugular venous distention. Lungs: Minimal crackles audible in bilateral bases. Heart: Regular rate and rhythm, S1-S2, mild systolic murmur audible Abdomen: Soft nontender, positive bowel sounds. Extremities: No edema, intact distal pulses. Neuro: Alert, oritented, no focal deficits. Detailed neuro exam was not perfor med. ASSESSMENT: # Newly diagnosed cardiomyopathy, EF of 20 to 25%, # Elevated troponin, likely NSTEMI # Acute HFrEF exacerbation # KALE # Valvular disease with moderate MR moderate TR PLAN: Aspirin, Lipitor, Coreg 6.25 mg twice daily Start IV heparin drip Discontinue IV Lasix. Start p.o. Lasix 40 mg daily Discontinue lisinopril for renal protection, start amlodipine 5 mg daily and imdur 15 mg daily Plan for cardiac catheterization tomorrow. Perform left and right both. Madi Balderas MD, FACC, RPVI Thank you for allowing [facility] to participate in this patient's care. Feel free to reach out in case of any followup questions. Objective - Vital Signs Vital signs: Vital Signs Temp 98.1 F 10/05/24 20:00 Pulse 87 10/06/24 04:00 Resp 16 10/06/24 04:00 BP 138/95 10/06/24 04:00 Pulse Ox 97 10/06/24 04:00 FiO2 Intake & Output 10/05/24 10/06/24 10/06/24 18:59 06:59 18:59 Intake Total 720 540 Output Total 1000 Balance -280 540 Weight 117.9 kg Intake: Oral 720 540 Output: Urine 1000 Other: Voiding Method Toilet Toilet # Voids 1 2 # Bowel Movements 1 - Labs CBC & Chem 7: 10/05/24 08:06 10/05/24 08:06 Labs: Abnormal Lab Results - Last 24 Hours (Table) 10/05/24 10/05/24 10/05/24 Range/Units 08:06 08:06 08:06 WBC 13.56 H (4.50-10.00) 10*3/uL BUN 27 H (9-20) mg/dL Creatinine 1.62 H (0.66-1.25) mg/dL Glucose 107 H (74-99) mg/dL TSH 0.358 L (0.465-4.680) mIU/L
[2024-10-06 07:57] LABS: Basophils # (A) 0.07 10*3/uL (0.00-0.10); Basophils % (A) 0.8 %; Eosinophils # (A) 0.34 10*3/uL (0.04-0.35); Eosinophils % (A) 3.7 %; HCT 48.1 % (39.6-50.0); HGB 15.4 g/dL (13.0-17.0); Lymphocytes # (A) 2.29 10*3/uL (0.90-5.00); Lymphocytes % (A) 24.7 %; MCH 28.3 pg (27.0-32.0); MCV 88.3 fL (80.0-97.0); Mean Platelet Volume 11.6 fL (9.5-12.2); Monocytes # (A) 0.73 10*3/uL (0.20-1.00); Monocytes % (A) 7.9 %; Neutrophils # (A) 5.82 10*3/uL (1.80-7.70); Neutrophils % (A) 62.6 %; Platelet Count 341 10*3/uL (140-440); RBC 5.45 10*6/uL (4.40-5.60); RDW 16.7 % (11.5-14.5); WBC 9.28 10*3/uL (4.50-10.00)
[2024-10-06 08:06] LABS: Partial Thromboplastin Time 23.2 sec (22.0-30.0)
[2024-10-06 08:15] LABS: African American GFR (CKD) 61 (>60 ml/min/1.73 sqM); Anion Gap 10 mmol/L; Blood Urea Nitrogen 32 mg/dL (9-20); Calcium 9.3 mg/dL (8.4-10.2); Carbon Dioxide 25 mmol/L (22-30); Chloride 104 mmol/L (98-107); Glucose 95 mg/dL (74-99); Non-African American GFR(CKD) 53 (>60 ml/min/1.73 sqM); Sodium 139 mmol/L (137-145)
[2024-10-06 08:17] LABS: Potassium 4.4 mmol/L (3.5-5.1)
[2024-10-06] MEDS: FUROSEMIDE 40 MG TAB PO SCH (09:37)
[2024-10-06] MEDS: amLODIPine 5 MG TAB PO SCH (09:37)
[2024-10-06] MEDS: ISOSORBIDE MONONITRATE ER 15 MG TAB PO SCH (09:38)
[2024-10-06] MEDS: HEPARIN SOD,PORK IN 0.45% NACL 25,000 UNIT in 0.45% NACL 1 250ML.BAG IV SCH (09:39)
[2024-10-06] MEDS: HEPARIN SODIUM 1,000 UN/ML (10ML VL) IV ONE (09:41)
--- NOTE | 2024-10-06 11:54 | P.PN ---
Subjective Progress Note Date: 10/06/24 Subjective: Patient seen and examined at bedside. No acute events overnight. Denies any shortness of breath. Denies any chest pain. Pertinent positives and negatives as discussed above, a complete review of systems was performed and all other systems are negative. Vitals Signs Reviewed. General: Nontoxic, no distress, appears at stated age Derm: Warm, dry Head: Atraumatic, normocephalic, symmetric Eyes: EOMI, no lid lag, anicteric sclera Mouth: No lip lesion, mucus membranes moist Cardiovascular: S1S2 reg, no murmur Lungs: CTA bilateral, no rhonchi, no rales, no accessory muscle use Abdominal: Soft, nontender to palpation, no guarding, no appreciable organomegaly Ext: No gross muscle atrophy, no edema, no contractures Neuro: CN II-XI grossly intact, no focal neuro deficits Psych: Alert, oriented, appropriate affect Data Reviewed Today: Pertinent Labs: WBC 9.28, hemoglobin 15.4, creatinine 1.48 Imaging: No new imaging Assessment and Plan: Active: Acute systolic CHF exacerbation Possible ischemic cardiomyopathy Type II versus type I NSTEMI Hypertension - Cardiology note reviewed, patient on heparin drip, monitor APTT - Likely Tomorrow - On aspirin 81 mg daily, atorvastatin 40 nightly, Lasix 40 daily - On amlodipine 5, Coreg 6.25 twice daily, Imdur 15 daily KALE, resolving - Continue to monitor BMP Resolved: Leukocytosis Euthyroid sick syndrome DVT ppx: Heparin drip Code status: Full code Anticipated discharge place: Pending clinical course Anticipated discharge time: Pending clinical course Objective - Vital Signs Vital signs: Vital Signs Temp 98.2 F 10/06/24 09:30 Pulse 85 10/06/24 09:30 Resp 18 10/06/24 09:30 BP 132/81 10/06/24 09:30 Pulse Ox 98 10/06/24 09:30 FiO2 Intake & Output 10/05/24 10/06/24 10/06/24 18:59 06:59 18:59 Intake Total 720 540 240 Output Total 1000 1000 Balance -280 540 -760 Weight 117.9 kg Intake: Oral 720 540 240 Output: Urine 1000 1000 Other: Voiding Method Toilet Toilet Toilet # Voids 1 2 # Bowel Movements 1 - Labs CBC & Chem 7: 10/06/24 07:26 10/06/24 07:15 Labs: Abnormal Lab Results - Last 24 Hours (Table) 10/06/24 Range/Units 07:15 BUN 32 H (9-20) mg/dL Creatinine 1.48 H (0.66-1.25) mg/dL
[2024-10-06] MEDS: ACETAMINOPHEN TAB 325 MG TAB PO PRN (12:48)
[2024-10-07] MEDS: HEPARIN SODIUM 1,000 UN/ML (10ML VL) IV PRN (03:22)
[2024-10-07] MEDS: ASPIRIN 325 MG TAB PO ONE (06:11)
[2024-10-07] MEDS: ATORVASTATIN 80 MG TAB PO ONE (06:11)
[2024-10-07] MEDS ORDERED: HEPARIN SODIUM,PORCINE (1 ML) 2,500 UNIT in SODIUM CHLORIDE 0.9% 250 ML IRRIGATION PRN (07:00)
[2024-10-07] MEDS ORDERED: HEPARIN SODIUM,PORCINE 10,000 UNIT in SODIUM CHLORIDE 0.9% 1,000 ML IRRIGATION PRN (07:00)
[2024-10-07] MEDS: methylPREDNISolone SOD SUCCI 125 MG/2 ML VIAL IV STA (09:58)
[2024-10-07] MEDS: SODIUM CHLORIDE 0.9% 1,000 ML IV SCH (09:58)
[2024-10-07] MEDS: diphenhydrAMINE 50 MG/ML 1 ML VIAL IVP STA (09:58)
[2024-10-07] MEDS: FAMOTIDINE 20 MG/2 ML VIAL IV STA (09:58)
[2024-10-07 10:20] LABS: Basophils # (A) 0.07 10*3/uL (0.00-0.10); Basophils % (A) 0.6 %; Eosinophils # (A) 0.43 10*3/uL (0.04-0.35); Eosinophils % (A) 3.9 %; HCT 49.7 % (39.6-50.0); HGB 16.2 g/dL (13.0-17.0); Lymphocytes # (A) 2.42 10*3/uL (0.90-5.00); Lymphocytes % (A) 21.9 %; MCH 28.6 pg (27.0-32.0); MCHC 32.6 g/dL (32.0-37.0); MCV 87.7 fL (80.0-97.0); Mean Platelet Volume 11.5 fL (9.5-12.2); Monocytes # (A) 1.05 10*3/uL (0.20-1.00); Monocytes % (A) 9.5 %; Neutrophils # (A) 7.06 10*3/uL (1.80-7.70); Neutrophils % (A) 63.8 %; Platelet Count 325 10*3/uL (140-440); RBC 5.67 10*6/uL (4.40-5.60); RDW 16.1 % (11.5-14.5); WBC 11.06 10*3/uL (4.50-10.00)
[2024-10-07 10:31] LABS: Partial Thromboplastin Time 40.6 sec (22.0-30.0); Prothrombin Time 11.2 sec (10.0-12.5)
[2024-10-07 10:33] LABS: African American GFR (CKD) 56 (>60 ml/min/1.73 sqM); Anion Gap 9 mmol/L; Blood Urea Nitrogen 29 mg/dL (9-20); Calcium 9.4 mg/dL (8.4-10.2); Carbon Dioxide 25 mmol/L (22-30); Chloride 103 mmol/L (98-107); Glucose 97 mg/dL (74-99); Non-African American GFR(CKD) 48 (>60 ml/min/1.73 sqM); Potassium 3.8 mmol/L (3.5-5.1); Sodium 137 mmol/L (137-145)
[2024-10-07] MEDS: MIDAZOLAM 2 MG/2 ML VIAL IVP ONE (10:51)
[2024-10-07] MEDS: fentaNYL (PF) 50 MCG/1 ML VIAL IVP ONE ×2 (10:51→11:20)
[2024-10-07] MEDS: LIDOCAINE 2% (PF) 20 MG/ML 5 ML VIAL SQ ONE (10:51)
[2024-10-07] MEDS: SODIUM CHLORIDE 0.9% 1,000 ML IV ONE (10:57)
[2024-10-07] MEDS: HEPARIN SODIUM,PORCINE (1 ML) 2,500 UNIT in SODIUM CHLORIDE 0.9% 250 ML IRRIGATION ONE (10:58)
[2024-10-07] MEDS: HEPARIN SODIUM,PORCINE 10,000 UNIT in SODIUM CHLORIDE 0.9% 1,000 ML IRRIGATION ONE (10:58)
[2024-10-07] MEDS: HEPARIN SODIUM 1,000 UN/ML (10ML VL) IVP ONE (11:22)
[2024-10-07 11:30] LABS: O2 Sat Blood Gas 71.5 %
[2024-10-07 11:31] LABS: O2 Sat Blood Gas 98.7 %
[2024-10-07 11:33] LABS: O2 Sat Blood Gas 53.7 %
[2024-10-07] MEDS: IOPAMIDOL-370 100ML BTL INTRATHECA ONE (11:46)
--- NOTE | 2024-10-07 12:14 | P.CARDCATH ---
Date of Procedure: 10/07/24 Description of Procedure: DIAGNOSTIC CORONARY ANGIOGRAPHY and LEFT HEART CATH AND RIGHT HEART CATH REPORT PROCEDURES PERFORMED: Right heart catheterization Left heart catheterization Selective coronary angiography Moderate conscious sedation 45 mins Ultrasound assisted right radial access Ultrasound assisted right basilar vein access INDICATION: Dilated cardiomyopathy. NSTEMI BRIEF HPI: 53-year-old with PMH of hypertension and asthma presented to the hospital because increased worsening shortness of breath. On admission he was noted to be hypertensive with NT-proBNP of 11,400, creatinine of 1.45, troponin elevation with a somewhat flat pattern of 0.067. A1c 6, LDL 82, TG 155, TSH 0.3, T41.1, Because of new cardiomyopathy of EF of 20% on echocardiogram he was scheduled for a heart catheterization procedure. CONSENT: I have explained the procedural steps of above-mentioned procedures in layman's terms to the patient. I discussed the risks (including but not limited to stroke, emergent vascular or cardiac surgery or ), benefits and alternative therapies for the above-mentioned procedure. I discussed the risks of sedation/analgesia and blood product administration (if indicated). The patient has indicated understanding and acceptance of these risks. Conscious Sedation: Patient's ECG, heart rate, blood pressure, pulse oximetry were monitored throughout the duration of procedure under my direct supervision. 1 mg Versed and 75 mcg Fentanyl were used for induction of moderate conscious sedation. Total duration of moderate concious sedation 45 minutes. PROCEDURAL DETAILS: Patient was prepped and draped in sterile fashion. Right heart catheterization: 1% lidocaine was infiltrated over the right antecubital fossa and right basilar vein. Under ultrasound guidance right basilar vein access was obtained using modified Seldinger technique. 6 Panamanian sheath was secured in place and flushed. Using a 5 Panamanian [place] catheter, right heart catheterization was performed. Sequential pressures and samples were collected from pulmonary wedge position, pulmonary artery RV and RA. Thermodilution study was performed. Phil study was performed. Left heart catheterization: 1% lidocaine was infiltrated over the right radial artery. Right radial access was obtained via modified seldinger technique. [Ultrasound was used for radial access]. Medications: 5mg of verapamil was administed in the radial sheet. 6000 Units of Heparin was administed once the catheter reached the aortic root Wires and Catheter used: J wire was advanced under fluroscopy to get to aortic root. Aortic valve was crossed with a wire using the support of JR4 . Left ventricular pressure and pressure gradint across aortic valve. 5 telugu JR 4 diagnostic catheter was utilized. JR4 catheter was short therefore it was exchanged for a JR 5 catheter 5 Panamanian. It was used to selectively engage the right coronary ostium. 5 telugu JL 3.5 diagnostic catheter was utilized to selectively engage the left coronary ostium. Angiographic images were reviewed in detail. Catheter and wire were removed. Radial sheet was flushed. The right radial sheath was removed and a TR band was placed. Patent hemostasis was achieved. The patient tolerated the procedure well. Patient was transported back to the post catheterization holding area in stable condition. TECHNICAL DETAILS Total radiation: 164 mGy Total fluro time: 7.2 minutes Total contrast used: Isovue 80 mL Complications: [none] Estimated Blood loss: less than 15 ml HEMODYNAMICS: Aortic Pressure: 140/100 mmHg. LV pressure: 145/7 mmHg. LVEDP 30 mmHg. There was no significant gradient across the aortic valve. PCW pressure: 25 mmHg PA pressure: 45/25 mmHg, mean PA pressure: 32 mmHg RV pressure: 45/ 10 mmHg, RVEDP 15 mmHg RA pressure: 15 mmHg BSA 2.38 m/s, hemoglobin 16, heart rate 89, Arterial sat 99%, PA sat 72%, RV sat 71%, RA sat 54% There is significant difference between the saturation of RA, and RV with a step-off noticed. Suspect left to right intracardiac shunt at the atrial level Phil cardiac output 5.3 L/min Phil cardiac index 2.2 L/min/m Thermodilution cardiac output 4.84 L/min Thermodilution cardiac index 2.04 L/min/m SELECTIVE CORONARY ARTERIOGRAPHY: LEFT MAIN: The left main is short and large caliber vessel. It bifurcates into the LAD and circumflex. Left main appears angiographically normal. LEFT ANTERIOR DESCENDING CORONARY ARTERY: LAD is a large caliber vessel which wraps around to the apex. Proximal LAD appears angiographically normal. Mid LAD appears angiographically normal. Distal LAD appears angiographically normal. LEFT CIRCUMFLEX CORONARY ARTERY: It is nondominant vessel. Left circumflex is a moderate caliber vessel. It appears angiographically normal. RIGHT CORONARY ARTERY: Codominant vessel. Large caliber and tortuous. Proximal mid and distal RCA appears patent with mild 10 to 20% disease. IMPRESSION: Mild obstructive CAD in LAD and LCx Elevated LVEDP of 30 mmHg and wedge pressures 25 mmHg Group 2 pulm hypertension Suspect [id number] intracardiac shunting at atrial level Nonischemic dilated cardiomyopathy PLAN: Continue aspirin, Lipitor 40 for mild CAD Optimize GDMT for dilated nonischemic cardiomyopathy. Increase Coreg to 12.5 twice daily, introduce Entresto, Farxiga 10 mg daily. Continue Lasix 40 mg daily. Discontinue amlodipine. Monitor kidney function electrolytes. Not doing MRA because of low kidney function. Consider starting it eventually on outpatient basis Plan for DEMETRICE with bubble study to look for intracardiac shunting Start verquvo 2.5 mg daily on discharge. Repeat surface echo in 3 months of GDMT Performing Physician Madi Balderas MD, FACC, RPVI Thank you for allowing [facility] to participate in this patient's care. Feel free to reach out in case of any followup questions.
--- NOTE | 2024-10-07 12:18 | P.CARDCATH ---
Date of Procedure: 10/07/24 Description of Procedure: DIAGNOSTIC CORONARY ANGIOGRAPHY and LEFT HEART CATH AND RIGHT HEART CATH REPORT PROCEDURES PERFORMED: Right heart catheterization Left heart catheterization Selective coronary angiography Moderate conscious sedation 45 mins Ultrasound assisted right radial access Ultrasound assisted right basilar vein access INDICATION: Dilated cardiomyopathy. NSTEMI BRIEF HPI: 53-year-old with PMH of hypertension and asthma presented to the hospital because increased worsening shortness of breath. On admission he was noted to be hypertensive with NT-proBNP of 11,400, creatinine of 1.45, troponin elevation with a somewhat flat pattern of 0.067. A1c 6, LDL 82, TG 155, TSH 0.3, T41.1, Because of new cardiomyopathy of EF of 20% on echocardiogram he was scheduled for a heart catheterization procedure. CONSENT: I have explained the procedural steps of above-mentioned procedures in layman's terms to the patient. I discussed the risks (including but not limited to stroke, emergent vascular or cardiac surgery or ), benefits and alternative therapies for the above-mentioned procedure. I discussed the risks of sedation/analgesia and blood product administration (if indicated). The patient has indicated understanding and acceptance of these risks. Conscious Sedation: Patient's ECG, heart rate, blood pressure, pulse oximetry were monitored throughout the duration of procedure under my direct supervision. 1 mg Versed and 75 mcg Fentanyl were used for induction of moderate conscious sedation. Total duration of moderate concious sedation 45 minutes. PROCEDURAL DETAILS: Patient was prepped and draped in sterile fashion. Right heart catheterization: 1% lidocaine was infiltrated over the right antecubital fossa and right basilar vein. Under ultrasound guidance right basilar vein access was obtained using modified Seldinger technique. 6 Guinean sheath was secured in place and flushed. Using a 5 Guinean [place] catheter, right heart catheterization was performed. Sequential pressures and samples were collected from pulmonary wedge position, pulmonary artery RV and RA. Thermodilution study was performed. Phil study was performed. Left heart catheterization: 1% lidocaine was infiltrated over the right radial artery. Right radial access was obtained via modified seldinger technique. [Ultrasound was used for radial access]. Medications: 5mg of verapamil was administed in the radial sheet. 6000 Units of Heparin was administed once the catheter reached the aortic root Wires and Catheter used: J wire was advanced under fluroscopy to get to aortic root. Aortic valve was crossed with a wire using the support of JR4 . Left ventricular pressure and pressure gradint across aortic valve. 5 romansh JR 4 diagnostic catheter was utilized. JR4 catheter was short therefore it was exchanged for a JR 5 catheter 5 Guinean. It was used to selectively engage the right coronary ostium. 5 romansh JL 3.5 diagnostic catheter was utilized to selectively engage the left coronary ostium. Angiographic images were reviewed in detail. Catheter and wire were removed. Radial sheet was flushed. The right radial sheath was removed and a TR band was placed. Patent hemostasis was achieved. The patient tolerated the procedure well. Patient was transported back to the post catheterization holding area in stable condition. TECHNICAL DETAILS Total radiation: 164 mGy Total fluro time: 7.2 minutes Total contrast used: Isovue 80 mL Complications: [none] Estimated Blood loss: less than 15 ml HEMODYNAMICS: Aortic Pressure: 140/100 mmHg. LV pressure: 145/7 mmHg. LVEDP 30 mmHg. There was no significant gradient across the aortic valve. PCW pressure: 25 mmHg PA pressure: 45/25 mmHg, mean PA pressure: 32 mmHg RV pressure: 45/ 10 mmHg, RVEDP 15 mmHg RA pressure: 15 mmHg BSA 2.38 m/s, hemoglobin 16, heart rate 89, Arterial sat 99%, PA sat 72%, RV sat 71%, RA sat 54% There is significant difference between the saturation of RA, and RV with a step-off noticed. Suspect left to right intracardiac shunt at the atrial level Phil cardiac output 5.3 L/min Phil cardiac index 2.2 L/min/m Thermodilution cardiac output 4.84 L/min Thermodilution cardiac index 2.04 L/min/m SELECTIVE CORONARY ARTERIOGRAPHY: LEFT MAIN: The left main is short and large caliber vessel. It bifurcates into the LAD and circumflex. Left main appears angiographically normal. LEFT ANTERIOR DESCENDING CORONARY ARTERY: LAD is large caliber. Proximal LAD has 30% disease. Mid and distal LCx appears patent with mild mid irregularities. Proximal LCx gives rise to large diagonal 1 branch. It bifurcates shortly after origin. Proximal portion of diagonal 1 has 20 to 30% disease. It is patent otherwise. LEFT CIRCUMFLEX CORONARY ARTERY: Codominant, large caliber, proximal LCx is patent with mild luminal irregularities. Proximal LCx gives rise to a large OM1 branch which is patent with mild luminal irregularities. Mid and distal LCx is otherwise patent. Distal LCx gives rise to small OM and PL branches distally which appears patent. RIGHT CORONARY ARTERY: Codominant vessel. Large caliber and tortuous. Proximal mid and distal RCA appears patent with mild 10 to 20% disease. IMPRESSION: Mild obstructive CAD in LAD and LCx Elevated LVEDP of 30 mmHg and wedge pressures 25 mmHg Group 2 pulm hypertension Suspect [id number] intracardiac shunting at atrial level Nonischemic dilated cardiomyopathy PLAN: Continue aspirin, Lipitor 40 for mild CAD Optimize GDMT for dilated nonischemic cardiomyopathy. Increase Coreg to 12.5 twice daily, introduce Entresto, Farxiga 10 mg daily. Continue Lasix 40 mg daily. Discontinue amlodipine. Monitor kidney function electrolytes. Not doing MRA because of low kidney function. Consider starting it eventually on outpatient basis Plan for DEMETRICE with bubble study to look for intracardiac shunting Start verquvo 2.5 mg daily on discharge. Repeat surface echo in 3 months of GDMT Performing Physician Madi Balderas MD, FACC, RPVI Thank you for allowing [facility] to participate in this patient's care. Feel free to reach out in case of any followup questions.
--- NOTE | 2024-10-07 12:22 | P.PN ---
Subjective Progress Note Date: 10/07/24 Principal diagnosis: Hospital course: Patient is a 53 year old male with past medical history of hypertension, asthma presented to the ED with shortness of breath. He reports feeling winded while walking out from his work place 3-4 days ago. He reports progressive worsening of his shortness of breath in the past couple of days. This morning he was hav ing difficulty even walking from the living room to the bathroom. He also mentions going to urgent care 3 weeks ago for bronchitis and he was given an inhaler that he used last night but it didn't help with his symptoms. Denies using oxygen at home. Denies history of blood clots. Does not use a blood thinner. He also mention not being able to follow-up with his PCP and not taking his medications for regular due to insurance issues. He mentions being admitted at [facility] 2 year ago and at the time he was told that he had a valvular issue. 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 Denies fever, chills, cough, chest pain, palpitations, abdominal pain, nausea, vomiting, hematuria, dysuria, hematochezia, melena, headache, slurred speech, numbness, tingling, dizziness, lightheadedness, blurred vision, double vision. ED documentation reviewed. In the ED patient was treated with aspirin 325 mg, famotidine 20 mg, furosemide 40 mg, DuoNeb, diphenhydramine 50 mg, Solu-Medrol 125 mg 10/05/24: Patient is seen and examined at bedside today. 10/0610/07/24: Patient evaluated at bedside. He denies any acute complaints. Patient will undergo cardiac cath today. Review of systems: Pertinent positives and negatives as discussed in HPI, a complete review of systems was performed and all other systems are negative. Vitals: Signs Reviewed, stable Physical examination: General: nontoxic, no distress, appears at stated age Derm: warm, dry, intact Head: atraumatic, normocephalic, symmetric Eyes: EOMI, anicteric sclera Mouth: no lip lesion, mucus membranes moist Cardiovascular: S1 S2 reg, no murmur Lungs: CTA bilateral, no rhonchi, no rales, no accessory muscle use Abdominal: soft, non-tender to palpation Extremities: No cyanosis, clubbing, or pedal edema. Neuro: Alert, Oriented, Gross neurological examination did not reveal any focal deficits. Psych: well appearing, appropriate affect Data Reviewed Today: Labs: WBC 11.06, APTT 40.6, BUN 29, creatinine 1.61 Imaging: No new imaging Assessment/Plan: Patient is a 53 year old male with past medical history of hypertension, asthma presented to the ED with shortness of breath. He has been diagnosed with CHF exacerbation with EF 20-25% and is placed on GDMT for heart failure. Active: #. Acute exacerbation of CHF #. Shortness of breath #. Hypertension Chest x-ray shows cardiomegaly with suspected mild interstitial edema, correlate for suspected CHF exacerbation/fluid overload state BNP 76275 Echocardiogram shows EF 20 to 25%, severely dilated LV cavity with severely reduced systolic function, mild RV dilatation with reduced systolic function, moderate pulmonary hypertension RVSP 47 mmHg, severely dilated LA, moderate MR, moderate TR Start Bumex 1 mg p.o. daily, Farxiga 10 mg p.o. daily, Entresto p.o. twice daily Continue Coreg 6.25 mg PO BID Continue supplemental oxygen as needed Monitor vital signs Monitor BMP Consulted cardiology, Cardiac catheterization today #. Troponin elevation, likely Type II NSTEMI Troponin I 0.064, 0.067 EKG independently interpreted as sinus rhythm, T wave inversion in V3-V6, I, aVL TSH 0.358, T4 1.10 Continue Aspirin 81 mg PO daily, Atorvastatin 40 mg PO HS Pending lipid panel, A1c Continue to trend troponin Continue telemetry monitoring #. KALE versus CKD?, unknown baseline UA is unremarkable Abdomen bladder ultrasound is unremarkable Monitor BMP #. Leukocytosis, likely reactive, improving Monitor CBC #. Elevated D-dimer D-dimer 1.39 Chest CTA shows no evidence for acute pulmonary embolism, small bilateral pleural effusion with bilateral areas of groundglass opacity likely reflecting mild alveolar edema, findings consistent with fluid overload state, focal 1.1 cm left midlung nodule nodular consolidation, possible focal infiltrate/edema but true nodule needs to be excluded #. Sick euthyroid TSH 0.358, T4 1.10 Repeat TSH and T4 4-6 weeks post discharge on outpatient basis F: None E: Replete as required N: Heart healthy diet A: Ambulatory DVT prophylaxis: Lovenox 40 mg SQ daily Code status: FULL CODE Anticipated discharge place: Pending clinical course Anticipated discharge time: Pending clinical course Dictation was produced using [employer] dictation software. please excuse any grammatical, word or spelling errors. Calli Villanueva MD PGY-1 IM I have seen and evaluated the patient today. Discussed with the resident and agree with the residents finding and plan as documented in the resident's note. Changes highlighted in blue font. Objective - Vital Signs Vital signs: Vital Signs Temp 98.8 F 10/07/24 08:35 Pulse 84 10/07/24 08:35 Resp 18 10/07/24 08:35 BP 135/93 10/07/24 08:35 Pulse Ox 97 10/07/24 08:35 FiO2 Intake & Output 10/06/24 10/07/24 10/07/24 18:59 06:59 18:59 Intake Total 720 746.749 150 Output Total 1000 Balance -280 746.749 150 Weight 117.2 kg Intake: IV 150 Intake, IV Titration 206.749 Amount Heparin Sod,Pork in 0.45% 206.749 NaCl 25,000 unit In 0.45 % NaCl 1 250ml.bag @ 8. 482 UNITS/KG/HR 10 mls/hr IV .Q24H JORGE Rx#: [id number] Oral 720 540 Output: Urine 1000 Other: Voiding Method Toilet Toilet Toilet # Voids 2 - Labs CBC & Chem 7: 10/07/24 09:18 10/07/24 09:18 Labs: Abnormal Lab Results - Last 24 Hours (Table) 10/07/24 10/07/24 10/07/24 Range/Units 09:18 09:18 09:18 WBC 11.06 H (4.50-10.00) 10*3/uL RBC 5.67 H (4.40-5.60) 10*6/uL Monocytes # 1.05 H (0.20-1.00) 10*3/uL Eosinophils # 0.43 H (0.04-0.35) 10*3/uL APTT 40.6 H (22.0-30.0) sec BUN 29 H (9-20) mg/dL Creatinine 1.61 H (0.66-1.25) mg/dL
[2024-10-07] MEDS: SACUBITRIL/VALSARTAN 24 MG-26 MG TABLET PO SCH (12:25)
[2024-10-07] MEDS: DAPAGLIFLOZIN PROPANEDIOL 10 MG TABLET PO SCH (12:25)
[2024-10-07] MEDS ORDERED: fentaNYL (PF) 50 MCG/ML 2 ML AMP IVP PRN (13:25)
[2024-10-07] MEDS ORDERED: MIDAZOLAM 2 MG/2 ML VIAL IV PRN (13:25)
[2024-10-07] MEDS: methocarbamoL 750 MG TAB PO STA (16:22)
[2024-10-07] MEDS: carvediloL 12.5 MG TAB PO SCH (16:31)
[2024-10-08 07:27] LABS: African American GFR (CKD) 42 (>60 ml/min/1.73 sqM); Anion Gap 10 mmol/L; Blood Urea Nitrogen 49 mg/dL (9-20); Calcium 9.1 mg/dL (8.4-10.2); Carbon Dioxide 22 mmol/L (22-30); Chloride 103 mmol/L (98-107); Glucose 110 mg/dL (74-99); Non-African American GFR(CKD) 36 (>60 ml/min/1.73 sqM); Potassium 4.5 mmol/L (3.5-5.1); Sodium 135 mmol/L (137-145)
[2024-10-08 07:47] LABS: HCT 52.4 % (39.6-50.0); HGB 17.2 g/dL (13.0-17.0); MCH 28.7 pg (27.0-32.0); MCHC 32.8 g/dL (32.0-37.0); MCV 87.5 fL (80.0-97.0); Mean Platelet Volume 12.1 fL (9.5-12.2); Platelet Count 413 10*3/uL (140-440); RBC 5.99 10*6/uL (4.40-5.60); RDW 16.1 % (11.5-14.5); WBC 16.51 10*3/uL (4.50-10.00)
[2024-10-08] MEDS: ASPIRIN 81 MG PO SCH (08:25)
[2024-10-08] MEDS: BUMETANIDE 1 MG TAB PO SCH (08:25)
--- NOTE | 2024-10-08 10:59 | P.PN ---
Subjective Progress Note Date: 10/08/24 Principal diagnosis: Hospital course: Patient is a 53 year old male with past medical history of hypertension, asthma presented to the ED with shortness of breath. He reports feeling winded while walking out from his work place 3-4 days ago. He reports progressive worsening of his shortness of breath in the past couple of days. This morning he was hav ing difficulty even walking from the living room to the bathroom. He also mentions going to urgent care 3 weeks ago for bronchitis and he was given an inhaler that he used last night but it didn't help with his symptoms. Denies using oxygen at home. Denies history of blood clots. Does not use a blood thinner. He also mention not being able to follow-up with his PCP and not taking his medications for regular due to insurance issues. He mentions being admitted at [facility] 2 year ago and at the time he was told that he had a valvular issue. 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 Denies fever, chills, cough, chest pain, palpitations, abdominal pain, nausea, vomiting, hematuria, dysuria, hematochezia, melena, headache, slurred speech, numbness, tingling, dizziness, lightheadedness, blurred vision, double vision. ED documentation reviewed. In the ED patient was treated with aspirin 325 mg, famotidine 20 mg, furosemide 40 mg, DuoNeb, diphenhydramine 50 mg, Solu-Medrol 125 mg 10/05/24: Patient is seen and examined at bedside today. 10/06 Patient seen and examined at bedside. No acute events overnight. Denies any shortness of breath. Denies any chest pain. 10/07/24: Patient evaluated at bedside. He denies any acute complaints. Patient w ill undergo cardiac cath today 10/08/24: Patient seen and examined at bedside today. Patient underwent cardiac cath yesterday. He will undergo DEMETRICE today. Review of systems: Pertinent positives and negatives as discussed in HPI, a complete review of systems was performed and all other systems are negative. Vitals: Signs Reviewed, stable Physical examination: General: nontoxic, no distress, appears at stated age Derm: warm, dry, intact Head: atraumatic, normocephalic, symmetric Eyes: EOMI, anicteric sclera Mouth: no lip lesion, mucus membranes moist Cardiovascular: S1 S2 reg, no murmur Lungs: CTA bilateral, no rhonchi, no rales, no accessory muscle use Abdominal: soft, non-tender to palpation Extremities: No cyanosis, clubbing, or pedal edema. Neuro: Alert, Oriented, Gross neurological examination did not reveal any focal deficits. Psych: well appearing, appropriate affect Data Reviewed Today: Labs: WBC 16.51, 17.2, sodium 135, creatinine 2.04, BUN 49 Cardiac cath 10/07/24 showed Mild obstructive CAD in LAD and LCx, Elevated LVEDP of 30 mmHg and wedge pressures 25 mmHg, Group 2 pulm hypertension, Suspect [id number] intracardiac shunting at atrial level, Nonischemic dilated cardiomyopathy Assessment/Plan: Patient is a 53 year old male with past medical history of hypertension, asthma presented to the ED with shortness of breath. He has been diagnosed with CHF exacerbation with EF 20-25% and is placed on GDMT for heart failure. He underwent cardiac cath on 10/07/24. He will undergo DEMETRICE with bubble study today. Active: #. Acute exacerbation of CHF #. Nonischemic dilated cardiomyopathy #. Shortness of breath #. Hypertension #. S/p Cardiac catheterization 10/07/24 Chest x-ray shows cardiomegaly with suspected mild interstitial edema, correlate for suspected CHF exacerbation/fluid overload state BNP 29012 Echocardiogram shows EF 20 to 25%, severely dilated LV cavity with severely reduced systolic function, mild RV dilatation with reduced systolic function, moderate pulmonary hypertension RVSP 47 mmHg, severely dilated LA, moderate MR, moderate TR Cardiac cath 10/07/24 showed Mild obstructive CAD in LAD and LCx, Elevated LVEDP of 30 mmHg and wedge pressures 25 mmHg, Group 2 pulm hypertension, Suspect hidj-[id number] intracardiac shunting at atrial level, Nonischemic dilated cardiomyopathy Continue Bumex 1 mg p.o. daily, Farxiga 10 mg p.o. daily, Entresto p.o. twice daily Increase Coreg 12.5 mg PO BID Continue supplemental oxygen as needed Monitor vital signs Monitor BMP Cardiology is following, recommend DEMETRICE with bubble study today to look for intracardiac shunting. Start verquvo 2.5 mg daily on discharge. Repeat surface echo in 3 months of GDMT. Consider starting MRA on outpatient basis when renal function improves #. Troponin elevation, likely Type II NSTEMI Troponin I 0.064, 0.067 EKG independently interpreted as sinus rhythm, T wave inversion in V3-V6, I, aVL TSH 0.358, T4 1.10 A1c 6.0 Lipid panel triglycerides 71.2, cholesterol 155, LDL 82.4, VLDL 14.24, HDL 58.4 Continue Aspirin 81 mg PO daily, Atorvastatin 40 mg PO HS Continue telemetry monitoring #. KALE versus CKD?, unknown baseline, worsening #. Cardiorenal syndrome vs medication induced UA is unremarkable Abdomen bladder ultrasound is unremarkable Obtain bladder scan Consider increasing diuretics, holding Entresto Monitor BMP #. Leukocytosis, likely reactive, improving Monitor CBC #. Elevated D-dimer D-dimer 1.39 Chest CTA shows no evidence for acute pulmonary embolism, small bilateral pleural effusion with bilateral areas of groundglass opacity likely reflecting mild alveolar edema, findings consistent with fluid overload state, focal 1.1 cm left midlung nodule nodular consolidation, possible focal infiltrate/edema but true nodule needs to be excluded #. Sick euthyroid TSH 0.358, T4 1.10 Repeat TSH and T4 4-6 weeks post discharge on outpatient basis F: None E: Replete as required N: Heart healthy diet A: Ambulatory DVT prophylaxis: Lovenox 40 mg SQ daily Code status: FULL CODE Anticipated discharge place: Pending clinical course Anticipated discharge time: Pending clinical course Dictation was produced using bookjam dictation software. please excuse any grammatical, word or spelling errors. Calli Villanueva MD PGY-1 IM I have seen and evaluated the patient today. Discussed with the resident and agree with the residents finding and plan as documented in the resident's note. Changes highlighted in blue font. Objective - Vital Signs Vital signs: Vital Signs Temp 98.2 F 10/08/24 04:00 Pulse 89 10/08/24 04:00 Resp 17 10/08/24 04:00 BP 101/70 10/08/24 04:00 Pulse Ox 97 10/08/24 04:00 FiO2 Intake & Output 10/07/24 10/08/24 10/08/24 18:59 06:59 18:59 Intake Total 1750 20 Balance 1750 20 Intake: IV 150 20 Invasive Line 2 20 Oral 1600 Other: Voiding Method Toilet Toilet # Voids 2 - Labs CBC & Chem 7: 10/08/24 06:21 10/08/24 06:21 Labs: Abnormal Lab Results - Last 24 Hours (Table) 10/07/24 10/07/24 10/07/24 Range/Units 09:18 09:18 09:18 WBC 11.06 H (4.50-10.00) 10*3/uL RBC 5.67 H (4.40-5.60) 10*6/uL Monocytes # 1.05 H (0.20-1.00) 10*3/uL Eosinophils # 0.43 H (0.04-0.35) 10*3/uL APTT 40.6 H (22.0-30.0) sec BUN 29 H (9-20) mg/dL Creatinine 1.61 H (0.66-1.25) mg/dL
--- NOTE | 2024-10-08 11:24 | P.PN ---
Subjective HISTORY OF PRESENTING ILLNESS: Patient is a 53-year-old with past medical history of hypertension, asthma presented to the hospital because of shortness of breath this has been getting worse over last 3 to 4 days. Denies any substernal chest pain however does report intermittent chest heaviness along with shortness of breath on occasions. Previously known to Dr. Ngo. 10/08/2024 Patient seen and examined resting comfortably in no acute distress. Cardiac catheterization revealed mild obstructive CAD in the LAD and circumflex with an elevated LVEDP of 30 and wedge pressure of 25. Suspect left to right intracardiac shunting at the atrial level, nonischemic dilated cardiomyopathy. Blood pressure 103/71 heart rate 87 afebrile maintaining oxygen saturation on room air. PHYSICAL EXAMINATION: Neck: Brisk carotid upstroke, mild elevated jugular venous distention. Lungs: Minimal crackles audible in bilateral bases. Heart: Regular rate and rhythm, S1-S2, mild systolic murmur audible Abdomen: Soft nontender, positive bowel sounds. Extremities: No edema, intact distal pulses. Neuro: Alert, oritented, no focal deficits. Detailed neuro exam was not performed. ASSESSMENT: Newly diagnosed cardiomyopathy, EF of 20 to 25%, Elevated troponin, likely NSTEMI Acute HFrEF exacerbation KALE Valvular disease with moderate MR moderate TR PLAN: Patient scheduled today for DEMETRICE. Further recommendations to follow based upon clinical course. Nurse Practitioner note has been reviewed, I agree with a documented findings and plan of care. Patient was seen and examined. Objective - Vital Signs Vital signs: Vital Signs Temp 98.2 F 10/08/24 04:00 Pulse 87 10/08/24 08:23 Resp 16 10/08/24 08:23 BP 103/71 10/08/24 08:23 Pulse Ox 96 10/08/24 08:23 FiO2 Intake & Output 10/07/24 10/08/24 10/08/24 18:59 06:59 18:59 Intake Total 1750 20 Balance 1750 20 Intake: IV 150 20 Invasive Line 2 20 Oral 1600 Other: Voiding Method Toilet Toilet # Voids 2 - Labs CBC & Chem 7: 10/08/24 06:21 10/08/24 06:21 Labs: Abnormal Lab Results - Last 24 Hours (Table) 10/08/24 10/08/24 Range/Units 06:21 06:21 WBC 16.51 H (4.50-10.00) 10*3/uL RBC 5.99 H (4.40-5.60) 10*6/uL Hgb 17.2 H (13.0-17.0) g/dL Hct 52.4 H (39.6-50.0) % Sodium 135 L (137-145) mmol/L BUN 49 H (9-20) mg/dL Creatinine 2.04 H (0.66-1.25) mg/dL Glucose 110 H (74-99) mg/dL
[2024-10-08] MEDS: BENZOCAINE SPRAY 1 EACH MM ONE (12:03)
[2024-10-08] MEDS: SODIUM CHLORIDE 0.9% 500 ML 500 ML IV ONE (12:03)
[2024-10-08] MEDS: MIDAZOLAM HCL 10 MG/10 ML VIAL IVP ONE (12:22)
[2024-10-08] MEDS: fentaNYL (PF) 50 MCG/1 ML VIAL IVP ONE (12:22)
[2024-10-08 12:27] VITALS: RESP 16
--- NOTE | 2024-10-08 14:27 | P.TEE ---
Date of Procedure: 10/08/24 Description of Procedure(s): Procedure performed: 1. Transesophageal Echocardiogram with color flow doppler, pulsed wave doppler and continuous wave doppler, (CPT 22378, +[id number], +[id number]) 2. Moderate conscious sedation. Sedation time 10 mins. (CPT 61278) Indications: Moderate MR, aortic regurgitation Concerns of possible vvuz-iw-[id number] intracardiac shunting right heart catheterization Consent: I have discussed the risks, benefits and alternative therapies for the above-mentioned procedure. The patient has indicated understanding and acceptance of the risks of the procedure. Signed consent was obtained and was placed in the paper chart. Procedural Steps: Timeout was performed in usual fashion. Patient's heart rate, blood pressure, oxygen saturation and ECG were monitored. Benzocaine was sprayed liberally in the back of the throat. Bite block was placed between the jaw. 2 mg of Versed and 50 mcg of Fentanyl were administered intravenously. After achieving appropriate moderate conscious sedation, DEMETRICE probe was advanced without difficulty and without any immediate complications to the esophagus. DEMETRICE study was performed with color flow doppler, pulsed wave doppler and continuous wave doppler. The probe was then removed. Patient tolerated the procedure well. Patient was transferred to the post procedure area in stable and satisfactory condition. Throughout the procedure patient's heart rate, blood pressure, oxygen saturation and ECG were monitored. Total sedation time 10 mins. Complications: none FINDINGS Left Atrium: Moderate LA dilatation. No evidence of mass or thrombus seen. Systolic forward flow blunting in pulmonic vein suggestive of diastolic dysfunction. Left Atrial Appendage: No evidence of thrombus or mass seen in SAROJ Inter atrial septum: Aneurysmal interatrial septum. No evidence of ASD and PFO or color Doppler. No evidence of aymhf-cv-oqhc intracardiac shunting or bubble study. And evidence of delayed minimal bubble crossover noticed in ascending aorta. Left Ventricle: Mildly dilated LV with severely reduced global systolic function Right Atrium: Mild RA dilatation Right Ventricle: Normal global RV size and systolic function Aortic Valve: Structurally normal Trileaflet, no significant calcification. Trace aortic regurgitation Mitral Valve: Struturally normal. Mildly redundant A1 competent of anterior leaflet, mild prolapse. Mild mitral regurgitation, likely primary. Pulmonic Valve: Not well visualized. Tricuspid Valve: Mild tricuspid regurgitation Ascending aorta, Aortic root and Aortic arch: Aortic root 3.9 cm. Normal-sized ascending aorta. Mild intimal thickening Descending aorta: Mild intimal thickening. No pericardial effusion CONCLUSION: Severe global LV systolic dysfunction Moderate LA dilatation, mild RA dilatation. Normal RV size Mild A1 anterior leaflet prolapse with mild MR Trace aortic regurgitation Mild tricuspid regurgitation Aortic root 3.9 cm No evidence of bpvqf-[id number] intracardiac shunting on bubble study Cannot rule out left to right intracardiac shunting however Madi Balderas MD, RPVI, FACC Thank you for allowing [facility] to participate in this patient's care. Feel free to reach out in case of any followup questions.
[2024-10-08] MEDS: METOPROLOL TARTRATE 12.5 MG TAB PO SCH (20:27)
[2024-10-09 08:21] LABS: HCT 52.3 % (39.6-50.0); HGB 17.1 g/dL (13.0-17.0); MCH 28.6 pg (27.0-32.0); MCHC 32.7 g/dL (32.0-37.0); MCV 87.5 fL (80.0-97.0); Mean Platelet Volume 11.5 fL (9.5-12.2); Platelet Count 335 10*3/uL (140-440); RBC 5.98 10*6/uL (4.40-5.60); RDW 16.1 % (11.5-14.5); WBC 12.13 10*3/uL (4.50-10.00)
[2024-10-09 08:39] LABS: African American GFR (CKD) 39 (>60 ml/min/1.73 sqM); Anion Gap 9 mmol/L; Blood Urea Nitrogen 43 mg/dL (9-20); Calcium 9.2 mg/dL (8.4-10.2); Carbon Dioxide 27 mmol/L (22-30); Chloride 101 mmol/L (98-107); Glucose 96 mg/dL (74-99); Non-African American GFR(CKD) 34 (>60 ml/min/1.73 sqM); Potassium 4.7 mmol/L (3.5-5.1); Sodium 137 mmol/L (137-145)
[2024-10-09] MEDS: SODIUM CHLORIDE 0.9% 1,000 ML IV SCH (10:15)
--- NOTE | 2024-10-09 10:38 | P.PN ---
Subjective Progress Note Date: 10/09/24 Principal diagnosis: Hospital course: Patient is a 53 year old male with past medical history of hypertension, asthma presented to the ED with shortness of breath. He reports feeling winded while walking out from his work place 3-4 days ago. He reports progressive worsening of his shortness of breath in the past couple of days. This morning he was hav ing difficulty even walking from the living room to the bathroom. He also mentions going to urgent care 3 weeks ago for bronchitis and he was given an inhaler that he used last night but it didn't help with his symptoms. Denies using oxygen at home. Denies history of blood clots. Does not use a blood thinner. He also mention not being able to follow-up with his PCP and not taking his medications for regular due to insurance issues. He mentions being admitted at [facility] 2 year ago and at the time he was told that he had a valvular issue. 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 Denies fever, chills, cough, chest pain, palpitations, abdominal pain, nausea, vomiting, hematuria, dysuria, hematochezia, melena, headache, slurred speech, numbness, tingling, dizziness, lightheadedness, blurred vision, double vision. ED documentation reviewed. In the ED patient was treated with aspirin 325 mg, famotidine 20 mg, furosemide 40 mg, DuoNeb, diphenhydramine 50 mg, Solu-Medrol 125 mg 10/05/24: Patient is seen and examined at bedside today. 10/06 Patient seen and examined at bedside. No acute events overnight. Denies any shortness of breath. Denies any chest pain. 10/07/24: Patient evaluated at bedside. He denies any acute complaints. Patient w ill undergo cardiac cath today 10/08/24: Patient seen and examined at bedside today. Patient underwent cardiac cath yesterday. He will undergo DEMETRICE today. 10/09/24: Patient evaluated at bedside. Patient underwent DEMETRICE yesterday. Last night patient became hypotensive and Coreg was switched to Metoprolol and Entresto was held. Review of systems: Pertinent positives and negatives as discussed in HPI, a complete review of systems was performed and all other systems are negative. Vitals: Signs Reviewed, stable Physical examination: General: nontoxic, no distress, appears at stated age Derm: warm, dry, intact Head: atraumatic, normocephalic, symmetric Eyes: EOMI, anicteric sclera Mouth: no lip lesion, mucus membranes moist Cardiovascular: S1 S2 reg, no murmur Lungs: CTA bilateral, no rhonchi, no rales, no accessory muscle use Abdominal: soft, non-tender to palpation Extremities: No cyanosis, clubbing, or pedal edema. Neuro: Alert, Oriented, Gross neurological examination did not reveal any focal deficits. Psych: well appearing, appropriate affect Data Reviewed Today: Labs: WBC 12.13, hemoglobin 17.1, BUN 43, creatinine 2.14 DEMETRICE showed severe global LV systolic dysfunction, moderate LA dilatation, mild RV dilatation, normal RV size, mild MR, trace AR, mild TR, no evidence of qsssv-np-qxnq intracardiac shunting, cannot rule out left to right intracardiac shunting Assessment/Plan: Patient is a 53 year old male with past medical history of hypertension, asthma presented to the ED with shortness of breath. He has been diagnosed with CHF exacerbation with EF 20-25% and is placed on GDMT for heart failure. He underwent cardiac cath on 10/07/24. He will undergo DEMETRICE with bubble study today. Active: #. KALE versus CKD?, unknown baseline, worsening #. Cardiorenal syndrome vs medication induced vs contrast induced UA is unremarkable Abdomen bladder ultrasound is unremarkable Bladder scan showed 201-300ml yesterday, 25 ml today Consider increasing diuretics, holding Entresto Monitor BMP Nephrology consulted #. Acute exacerbation of CHF #. Nonischemic dilated cardiomyopathy #. Shortness of breath #. Troponin elevation, likely Type II NSTEMI #. Hypertension #. S/p Cardiac catheterization 10/07/24 #. S/p DEMETRICE 10/08/24 Chest x-ray shows cardiomegaly with suspected mild interstitial edema, correlate for suspected CHF exacerbation/fluid overload state EKG independently interpreted as sinus rhythm, T wave inversion in V3-V6, I, aVL BNP 25942 Troponin I 0.064, 0.067 TSH 0.358, T4 1.10 A1c 6.0 Lipid panel triglycerides 71.2, cholesterol 155, LDL 82.4, VLDL 14.24, HDL 58.4 Echocardiogram shows EF 20 to 25%, severely dilated LV cavity with severely reduced systolic function, mild RV dilatation with reduced systolic function, moderate pulmonary hypertension RVSP 47 mmHg, severely dilated LA, moderate MR, moderate TR Cardiac cath 10/07/24 showed Mild obstructive CAD in LAD and LCx, Elevated LVEDP of 30 mmHg and wedge pressures 25 mmHg, Group 2 pulm hypertension, Suspect [id number] intracardiac shunting at atrial level, Nonischemic dilated cardiomyopathy DEMETRICE 10/08/24 showed severe global LV systolic dysfunction, moderate LA dilatation, mild RV dilatation, normal RV size, mild MR, trace AR, mild TR, no evidence of coyyr-[id number]-lvnh intracardiac shunting, cannot rule out left to right intracardiac shunting Continue Aspirin 81 mg PO daily, Atorvastatin 40 mg PO HS, Bumex 1 mg p.o. daily, Farxiga 10 mg p.o. daily, Entresto p.o. twice daily Coreg discontinued Started on metoprolol 12.5 mg p.o. twice daily Continue supplemental oxygen as needed Continue telemetry monitoring Monitor vital signs Monitor [facility] Cardiology is following, recommend DEMETRICE with bubble study today to look for intracardiac shunting. Start verquvo 2.5 mg daily on discharge. Repeat surface echo in 3 months of GDMT. Consider starting MRA on outpatient basis when renal function improves #. Leukocytosis, likely reactive, improving Monitor CBC #. Elevated D-dimer D-dimer 1.39 Chest CTA shows no evidence for acute pulmonary embolism, small bilateral pleural effusion with bilateral areas of groundglass opacity likely reflecting mild alveolar edema, findings consistent with fluid overload state, focal 1.1 cm left midlung nodule nodular consolidation, possible focal infiltrate/edema but true nodule needs to be excluded #. Sick euthyroid TSH 0.358, T4 1.10 Repeat TSH and T4 4-6 weeks post discharge on outpatient basis F: 0.9 normal saline at 100 ml/hr E: Replete as required N: Heart healthy diet A: Ambulatory DVT prophylaxis: Heparin 5000 U SQ Q8HR Code status: FULL CODE Anticipated discharge place: Pending clinical course Anticipated discharge time: Pending clinical course Dictation was produced using Innohub dictation software. please excuse any grammatical, word or spelling errors. Calli Villanueva MD PGY-1 IM I have seen and evaluated the patient today. Discussed with the resident and agree with the residents finding and plan as documented in the resident's note. Changes highlighted in blue font. Objective - Vital Signs Vital signs: Vital Signs Temp 97.7 F 10/09/24 04:00 Pulse 69 10/09/24 04:00 Resp 16 10/09/24 04:00 BP 113/76 10/09/24 04:00 Pulse Ox 98 10/09/24 04:00 FiO2 Intake & Output 10/08/24 10/09/24 10/09/24 18:59 06:59 18:59 Intake Total 20 Output Total 25 Balance -5 Weight 118.2 kg Intake: IV 20 Invasive Line 2 20 Output: Post Void Residual 25 Other: Voiding Method Toilet # Voids 2 - Labs CBC & Chem 7: 10/09/24 07:52 10/09/24 07:52 Labs: Abnormal Lab Results - Last 24 Hours (Table) 10/08/24 10/08/24 Range/Units 06:21 06:21 WBC 16.51 H (4.50-10.00) 10*3/uL RBC 5.99 H (4.40-5.60) 10*6/uL Hgb 17.2 H (13.0-17.0) g/dL Hct 52.4 H (39.6-50.0) % Sodium 135 L (137-145) mmol/L BUN 49 H (9-20) mg/dL Creatinine 2.04 H (0.66-1.25) mg/dL Glucose 110 H (74-99) mg/dL
--- NOTE | 2024-10-09 10:48 | P.PN ---
Subjective HISTORY OF PRESENT ILLNESS: Patient is a 53-year-old with past medical history of hypertension, asthma presented to the hospital because of shortness of breath this has been getting worse over last 3 to 4 days. Denies any substernal chest pain however does report intermittent chest heaviness along with shortness of breath on occasions. Previously known to Dr. Ngo. 10/08/2024 Patient seen and examined resting comfortably in no acute distress. Cardiac catheterization revealed mild obstructive CAD in the LAD and circumflex with an elevated LVEDP of 30 and wedge pressure of 25. Suspect left to right intracardiac shunting at the atrial level, nonischemic dilated cardiomyopathy. Blood pressure 103/71 heart rate 87 afebrile maintaining oxygen saturation on room air. 10/09/2024 Patient is status post DEMETRICE with Dr. Balderas revealing severe global LV systolic dysfunction, moderate LA dilation, mild RA dilation, trace aortic regurgitation, mild tricuspid regurgitation. Patient examined this morning to bedside. Patient currently denies chest pain or pressure. He denies shortness of breath. Vital signs are stable. Creatinine 2.14. PHYSICAL EXAM: VITAL SIGNS: Reviewed. GENERAL: Well-developed in no acute distress. NECK: Supple. No JVD or thyromegaly LUNGS: Respirations even and unlabored. Lungs essentially clear to auscultation bilaterally. HEART: Regular rate and rhythm. S1 and S2 heard. EXTREMITIES: Normal range of motion. No clubbing or cyanosis. Peripheral pulses intact. No lower extremity edema ASSESSMENT: Newly diagnosed cardiomyopathy, EF of 20 to 25%, nonischemic Non-STEMI, status post cardiac catheterization revealing mild nonobstructive CAD in LAD and circumflex Pulmonary hypertension Acute heart failure with reduced EF Acute kidney injury Valvular disease with moderate MR moderate TR PLAN: Continue aspirin, Lipitor, Bumex, Farxiga, metoprolol, and Entresto Begin IV fluids at 100 cc an hour for 12 hours Continue to monitor kidney function Further recommendations pending patient course Patient to follow-up postdischarge with Dr. Balderas Nurse practitioner note has been reviewed by physician. Signing provider agrees with the documented findings, assessment, and plan of care documented by STATION MANAGER as a scribe. Objective - Vital Signs Vital signs: Vital Signs Temp 98.2 F 10/09/24 08:00 Pulse 69 10/09/24 08:00 Resp 16 10/09/24 08:00 BP 111/75 10/09/24 08:00 Pulse Ox 98 10/09/24 08:00 FiO2 Intake & Output 10/08/24 10/09/24 10/09/24 18:59 06:59 18:59 Intake Total 20 118 Output Total 25 Balance -5 118 Weight 118.2 kg Intake: IV 20 Invasive Line 2 20 Oral 118 Output: Post Void Residual 25 Other: Voiding Method Toilet # Voids 2 - Labs CBC & Chem 7: 10/09/24 07:52 10/09/24 07:52 Labs: Abnormal Lab Results - Last 24 Hours (Table) 10/09/24 10/09/24 Range/Units 07:52 07:52 WBC 12.13 H (4.50-10.00) 10*3/uL RBC 5.98 H (4.40-5.60) 10*6/uL Hgb 17.1 H (13.0-17.0) g/dL Hct 52.3 H (39.6-50.0) % BUN 43 H (9-20) mg/dL Creatinine 2.14 H (0.66-1.25) mg/dL
--- NOTE | 2024-10-09 13:02 | P.NPCON ---
History of Present Illness - Reason for Consult acute renal failure - History of Present Illness Patient is a 53-year-old male with history of hypertension who was admitted to the hospital with complaints of shortness of breath which has progressively worsened over about 2 to 3 weeks prior to admission. Patient was noted to be in volume overload and echocardiogram showed ejection fraction of 20 to 25% No history of kidney diseases Serum creatinine was 1.49 on admission and has increased to 2.1 today. Patient has been voiding Maintained on Bumex and saline was also started this morning. Hypotension noted with systolic blood pressure in the 90s yesterday. Entresto started on 10/07/2024 No urinary symptoms. Past Medical History Past Medical History: Hypertension Additional Past Medical History / Comment(s): lt inguinal hernia and a "valve that doesn't close all th way" History of Any Multi-Drug Resistant Organisms: None Reported Past Surgical History: Hernia Repair Additional Past Surgical History / Comment(s): hiatal hernia repair. Past Psychological History: No Psychological Hx Reported Smoking Status: Current some day smoker, Former smoker Past Alcohol Use History: None Reported Past Drug Use History: None Reported Medications and Allergies Home Medications Medication Instructions Recorded Confirmed Type Vericiguat [Verquvo] 2.5 mg PO DAILY 90 Days #90 tablet 10/07/24 Rx Allergies Allergy/AdvReac Type Severity Reaction Status Date / Time ibuprofen [From Motrin] Allergy congestion Verified 10/04/24 08:56 & sneezing iodine Allergy Anaphylaxis Verified 10/04/24 08:56 to Shellfish shellfish derived [Shellfish] Allergy Anaphylaxis Verified 10/04/24 08:56 Physical Exam Vitals: Vital Signs Temp Pulse Pulse Pulse Resp BP Pulse Ox 10/09/24 12:00 62 16 108/75 97 10/09/24 08:00 98.2 F 69 16 111/75 98 10/09/24 04:00 97.7 F 69 16 113/76 98 10/09/24 02:00 67 10/09/24 00:00 98.0 F 65 16 132/83 98 10/08/24 20:00 97.8 F 82 82 16 101/55 98 10/08/24 17:22 72 16 94/65 100 10/08/24 13:00 97.9 F 81 16 92/68 95 Intake and Output 10/08/24 10/09/24 10/09/24 22:59 06:59 14:59 Intake Total 10 10 128 Output Total 25 Balance 10 -15 128 Intake: IV 10 10 10 Invasive Line 2 10 10 10 Oral 118 Output: Post Void Residual 25 Other: Voiding Method Toilet Toilet Toilet Weight 118.2 kg Patient is awake, comfortable, no acute distress Examination of the heart S1 and S2 Examination of the lungs bilateral breath sounds are heard Abdomen is soft nontender Examination of lower extremity shows no evidence of edema DENTAL SECRETARY exam grossly intact Results - Lab Results Most recent lab results Calcium 9.2 mg/dL (8.4-10.2) 10/09/24 07:52 Magnesium 1.9 mg/dL (1.6-2.3) 10/04/24 06:15 10/09/24 07:52 10/09/24 07:52 Assessment and Plan Assessment: 1. Acute kidney injury, ATN secondary to hypotension and IV contrast which patient received on 10/04/2024 and 10/07/2024 for CTA and cardiac catheterization. Status post recent diuresis. UA is completely benign 2. Cardiomyopathy with a EF of 20 to 25%, nonischemic cardiomyopathy 3. Non-ST elevation IN status post cardiac catheterization on 10/07/2024 with no mild nonobstructive coronary artery disease 4. Pulmonary hypertension 5. Acute CHF with reduced ejection fraction 6. Moderate mitral regurgitation and tricuspid regurgitation Plan: May continue with IV fluids for 12 hours Hold Bumex Consider inotropic agents if renal function does not improve. May continue with Entresto and Farxiga for now Check ultrasound of the kidneys Thank you for the consultation. We will continue to follow the patient with you during his hospitalization
[2024-10-09] MEDS: HEPARIN SODIUM,PORCINE 5,000 UNIT/ML 1 ML VIAL SQ SCH (16:08)
[2024-10-10 07:59] LABS: HCT 50.4 % (39.6-50.0); HGB 16.2 g/dL (13.0-17.0); MCH 28.5 pg (27.0-32.0); MCHC 32.1 g/dL (32.0-37.0); MCV 88.6 fL (80.0-97.0); Mean Platelet Volume 11.7 fL (9.5-12.2); Platelet Count 327 10*3/uL (140-440); RBC 5.69 10*6/uL (4.40-5.60); RDW 16.3 % (11.5-14.5); WBC 8.76 10*3/uL (4.50-10.00)
[2024-10-10 08:26] LABS: African American GFR (CKD) 48 (>60 ml/min/1.73 sqM); Anion Gap 7 mmol/L; Blood Urea Nitrogen 34 mg/dL (9-20); Calcium 9.2 mg/dL (8.4-10.2); Carbon Dioxide 27 mmol/L (22-30); Chloride 104 mmol/L (98-107); Glucose 121 mg/dL (74-99); Non-African American GFR(CKD) 42 (>60 ml/min/1.73 sqM); Potassium 4.6 mmol/L (3.5-5.1); Sodium 138 mmol/L (137-145)
[2024-10-10 08:59] VITALS: BP 102/70; PULSE 72; TEMP 98
--- NOTE | 2024-10-10 11:43 | P.DS ---
Providers Date of admission: 10/04/24 10:06 Expected date of discharge: 10/10/24 Attending physician: Rick Nesbitt Consults: 10/04/24 09:26 Consult Physician Urgent Consulting Provider: [facility] Consult Reason/Comments: chf/elevated trop Do you want consulting provider notified?: Yes 10/09/24 09:18 Consult Physician Routine Consulting Provider: Alaina Pond Consult Reason/Comments: kale Do you want consulting provider notified?: Yes Primary care physician: Stated None Hospital Course: Discharge diagnosis: KALE Acute exacerbation of CHF Nonischemic dilated cardiomyopathy Shortness of breath Troponin elevation, likely Type II NSTEMI Hypertension S/p Cardiac catheterization 10/07/24 S/p DEMETRICE 10/08/24 Leukocytosis, likely reactive Elevated D-dimer Euthyroid sick syndrome Hospital Course: Patient is a 53 year old male with past medical history of hypertension, asthma presented to the ED with shortness of breath. He reports feeling winded while walking out from his work place 3-4 days ago. He reports progressive worsening of his shortness of breath in the past couple of days. This morning he was having difficulty even walking from the living room to the bathroom. He also mentions going to urgent care 3 weeks ago for bronchitis and he was given an inhaler that he used last night but it didn't help with his symptoms. Initial evaluation in the ED showed vitals T 97.7 F, DC 98 bpm, RR 20, BP 165/108, SpO2 98% on room air. EKG independently interpreted as sinus rhythm, T wave inversion in V3-V6, I, aVL. Chest x-ray shows cardiomegaly with suspected mild interstitial edema, correlate for suspected CHF exacerbation/fluid overload state. Chest CTA shows no evidence for acute pulmonary embolism, small bilateral pleural effusion with bilateral areas of groundglass opacity likely reflecting mild alveolar edema, findings consistent with fluid overload state, focal 1.1 cm left midlung nodule nodular consolidation, possible focal infiltrate/edema but true nodule needs to be excluded. Labs hemoglobin 12.9, D-dimer 1.39, bicarb 19, BUN 27, creatinine 1.49,Troponin I 0.064, 0.067. At that point patient was started on Lasix, lisinopril, Aldactone, aspirin, statin. Further work up showed Echocardiogram shows EF 20 to 25%, severely dilated LV cavity with severely reduced systolic function, mild RV dilatation with reduced systolic function, moderate pulmonary hypertension RVSP 47 mmHg, severely dilated LA, moderate MR, moderate TR. TSH 0.358, T4 1.10, A1c 6.0. Lipid panel triglycerides 71.2, cholesterol 155, LDL 82.4, VLDL 14.24, HDL 58.4. He underwent Cardiac cath 10/07/24 showed Mild obstructive CAD in LAD and LCx, Elevated LVEDP of 30 mmHg and wedge pressures 25 mmHg, Group 2 pulm hypertension, Suspect [id number] intracardiac shunting at atrial level, Nonischemic dilated cardiomyopathy. DEMETRICE showed severe global LV systolic dysfunction, moderate LA dilatation, mild RV dilatation, normal RV size, mild MR, trace AR, mild TR, no evidence of [id number] intracardiac shunting, cannot rule out left to right intracardiac shunting. He was started on Bumex, Farxiga, Entresto, Coreg. He then became hypotensive and Coreg was discontinued. He was started on metoprolol. He also had KALE and was retaining urine. He was given some IV fluids and Bumex was held for a day. His kidney function is better today. Patient has been optimized for discharge. Patient seen at bedside today and is feeling good and excited about discharge. Patient will be discharged today and is given a script for aspirin, Bumex, Entresto, atorvastatin, metoprolol, verquvo, Farxiga Patient is given a handout for Heart failure, Dilated cardiomyopathy, Acute Kidney Injury and is advised to be compliant with medications. 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 Vital signs are reviewed and stable General: nontoxic, no distress, appears at stated age Derm: warm, dry, intact Head: atraumatic, normocephalic, symmetric Eyes: EOMI, anicteric sclera Mouth: no lip lesion, mucus membranes moist Cardiovascular: S1 S2 reg, no murmur Lungs: CTA bilateral, no rhonchi, no rales, no accessory muscle use Abdominal: soft, non-tender to palpation Extremities: No cyanosis, clubbing, or pedal edema. Neuro: Alert, Oriented, Gross neurological examination did not reveal any focal deficits. Psych: well appearing, appropriate affect A total of 30 minutes of time were spent preparing this complex discharge summary. Patient was discharged on 10/10/24 at 0951. Dictation was produced using [employer] dictation software. please excuse any grammatical, word or spelling error Calli Villanueva MD PGY-1 IM I have seen and evaluated the patient today. Discussed with the resident and agree with the residents finding and plan as documented in the resident's note. Changes highlighted in blue font. Patient Condition at Discharge: Stable Plan - Discharge Summary Discharge Rx Participant: No New Discharge Prescriptions: New Aspirin 81 mg PO DAILY 30 Days #30 tab Bumetanide [BUMEX] 1 mg PO DAILY 30 Days #30 tab Sacubitril/Valsartan [Entresto 24 mg-26 mg Tablet] 1 each PO BID 30 Days #60 tab Atorvastatin [Lipitor] 40 mg PO HS 30 Days #30 tab Metoprolol Tartrate [Lopressor] 12.5 mg PO BID 30 Days #30 tab Vericiguat [Verquvo] 2.5 mg PO DAILY 90 Days #90 tablet Dapagliflozin Propanediol [Farxiga] 10 mg PO DAILY 30 Days #30 tab Discharge Medication List Vericiguat [Verquvo] 2.5 mg PO DAILY 90 Days #90 tablet 10/07/24 [Rx] Aspirin 81 mg PO DAILY 30 Days #30 tab 10/10/24 [Rx] Atorvastatin [Lipitor] 40 mg PO HS 30 Days #30 tab 10/10/24 [Rx] Bumetanide [BUMEX] 1 mg PO DAILY 30 Days #30 tab 10/10/24 [Rx] Dapagliflozin Propanediol [Farxiga] 10 mg PO DAILY 30 Days #30 tab 10/10/24 [Rx] Metoprolol Tartrate [Lopressor] 12.5 mg PO BID 30 Days #30 tab 10/10/24 [Rx] Sacubitril/Valsartan [Entresto 24 mg-26 mg Tablet] 1 each PO BID 30 Days #60 tab 10/10/24 [Rx] Follow up Appointment(s)/Referral(s): Madi Balderas MD [Medical Doctor] - 10/23/24 9:45 am [facility] [NON-STAFF] - 1 Week None,Stated [Primary Care Provider] - 1-2 days Patient Instructions/Handouts: Heart Failure (GEN), Dilated Cardiomyopathy (GEN), Acute Kidney Injury (GEN) Activity/Diet/Wound Care/Special Instructions: Follow up with PCP and towboat pilot. Repeat TSH and T4 4-6 weeks post discharge on outpatient basis with PCP Discharge/Stand Alone Forms: Area PCPs Discharge Disposition: HOME SELF-CARE
--- NOTE | 2024-10-10 13:23 | P.PN ---
Subjective HISTORY OF PRESENT ILLNESS: Patient is a 53-year-old with past medical history of hypertension, asthma presented to the hospital because of shortness of breath this has been getting worse over last 3 to 4 days. Denies any substernal chest pain however does report intermittent chest heaviness along with shortness of breath on occasions. Previously known to Dr. Ngo. 10/08/2024 Patient seen and examined resting comfortably in no acute distress. Cardiac catheterization revealed mild obstructive CAD in the LAD and circumflex with an elevated LVEDP of 30 and wedge pressure of 25. Suspect left to right intracardiac shunting at the atrial level, nonischemic dilated cardiomyopathy. Blood pressure 103/71 heart rate 87 afebrile maintaining oxygen saturation on room air. 10/09/2024 Patient is status post DEMETRICE with Dr. Balderas revealing severe global LV systolic dysfunction, moderate LA dilation, mild RA dilation, trace aortic regurgitation, mild tricuspid regurgitation. Patient examined this morning to bedside. Patient currently denies chest pain or pressure. He denies shortness of breath. Vital signs are stable. Creatinine 2.14. 10/10/2024 Patient examined this morning at bedside. Patient denies chest pain or pressure. Patient denies shortness of breath. Creatinine is slightly improved today at 1.80 PHYSICAL EXAM: VITAL SIGNS: Reviewed. GENERAL: Well-developed in no acute distress. NECK: Supple. No JVD or thyromegaly LUNGS: Respirations even and unlabored. Lungs essentially clear to auscultation bilaterally. HEART: Regular rate and rhythm. S1 and S2 heard. EXTREMITIES: Normal range of motion. No clubbing or cyanosis. Peripheral pulses intact. No lower extremity edema ASSESSMENT: Newly diagnosed cardiomyopathy, EF of 20 to 25%, nonischemic Non-STEMI, status post cardiac catheterization revealing mild nonobstructive CAD in LAD and circumflex Pulmonary hypertension Acute heart failure with reduced EF Acute kidney injury Valvular disease with moderate MR moderate TR PLAN: Continue aspirin, Lipitor, Bumex, Farxiga, metoprolol, and Entresto Consider addition of Aldactone on an outpatient basis pending kidney function Patient is stable for discharge home today from a cardiac standpoint Patient to follow-up postdischarge with Dr. Balderas Nurse practitioner note has been reviewed by physician. Signing provider agrees with the documented findings, assessment, and plan of care documented by HOT P[employer]CH PRESS OPERATOR as a scribe. Objective - Vital Signs Vital signs: Vital Signs Temp 98 F 10/10/24 08:00 Pulse 72 10/10/24 08:00 Resp 16 10/10/24 08:00 BP 102/70 10/10/24 08:00 Pulse Ox 100 10/10/24 08:00 FiO2 Intake & Output 10/09/24 10/10/24 10/10/24 18:59 06:59 18:59 Intake Total 138 Balance 138 Weight 117.7 kg Intake: IV 20 Invasive Line 2 20 Oral 118 Other: Voiding Method Toilet Toilet Toilet - Labs CBC & Chem 7: 10/10/24 07:40 10/10/24 07:40 Labs: Abnormal Lab Results - Last 24 Hours (Table) 10/10/24 10/10/24 Range/Units 07:40 07:40 RBC 5.69 H (4.40-5.60) 10*6/uL Hct 50.4 H (39.6-50.0) % BUN 34 H (9-20) mg/dL Creatinine 1.80 H (0.66-1.25) mg/dL Glucose 121 H (74-99) mg/dL
--- NOTE | 2024-10-10 15:09 | P.PN ---
Subjective Patient is seen for follow-up for acute kidney injury. Status post IV fluids No significant complaints today No shortness of breath Plans for discharge today Renal function has improved with serum creatinine down to 1.8. Objective - Vital Signs Vital signs: Vital Signs Temp 98 F 10/10/24 08:00 Pulse 72 10/10/24 08:00 Resp 16 10/10/24 08:00 BP 102/70 10/10/24 08:00 Pulse Ox 100 10/10/24 08:00 FiO2 Intake & Output 10/09/24 10/10/24 10/10/24 18:59 06:59 18:59 Intake Total 138 Balance 138 Weight 117.7 kg Intake: IV 20 Invasive Line 2 20 Oral 118 Other: Voiding Method Toilet Toilet Toilet - Exam Patient is awake, comfortable, no acute distress Examination of the heart S1 and S2 Examination of the lungs bilateral breath sounds are heard Abdomen is soft nontender Examination of lower extremities shows no evidence of edema UPHOLSTERER ASSEMBLY LINE exam grossly intact - Labs CBC & Chem 7: 10/10/24 07:40 10/10/24 07:40 Labs: Abnormal Lab Results - Last 24 Hours (Table) 10/10/24 10/10/24 Range/Units 07:40 07:40 RBC 5.69 H (4.40-5.60) 10*6/uL Hct 50.4 H (39.6-50.0) % BUN 34 H (9-20) mg/dL Creatinine 1.80 H (0.66-1.25) mg/dL Glucose 121 H (74-99) mg/dL Assessment and Plan Assessment: 1. Acute kidney injury, ATN secondary to hypotension and IV contrast which patient received on 10/04/2024 and 10/07/2024 for CTA and cardiac catheterization. Status post recent diuresis. UA is completely benign. Your renal function improved with gentle IV hydration. 2. Cardiomyopathy with a EF of 20 to 25%, nonischemic cardiomyopathy 3. Non-ST elevation SD status post cardiac catheterization on 10/07/2024 with no mild nonobstructive coronary artery disease 4. Pulmonary hypertension 5. Acute CHF with reduced ejection fraction 6. Moderate mitral regurgitation and tricuspid regurgitation Plan: Stable for discharge from nephrology standpoint Repeat labs as outpatient in 3 to 4 days Follow-up with nephrology if renal function not back to baseline. May resume oral diuretics in 1 to 2 days
== END 2024-10-10 11:15 | disposition home or self-care (01) | DRG 280 ==
LOC: EC 06:03 → 3SCARD 10:06
PROVIDERS: ADMIT Student in an Organized Health Care Education/Training Program; ATTEND Student in an Organized Health Care Education/Training Program
PROC: 4A023N8 Measurement of Cardiac Sampling and Pressure, Bilateral, Percutaneous Approach (ICD-10-PCS; 2024-10-07)
PROC: B2111ZZ Fluoroscopy of Multiple Coronary Arteries using Low Osmolar Contrast (ICD-10-PCS; 2024-10-07)
PROC: B246ZZ4 Ultrasonography of Right and Left Heart, Transesophageal (ICD-10-PCS; principal; 2024-10-08 09:50)
DX: I11.0 Hypertensive heart disease with heart failure (principal); I50.23 Acute on chronic systolic (congestive) heart failure; I21.A1 Myocardial infarction type 2; N17.0 Acute kidney failure with tubular necrosis; I27.22 Pulmonary hypertension due to left heart disease; J45.909 Unspecified asthma, uncomplicated; I08.3 Combined rheumatic disorders of mitral, aortic and tricuspid valves; I42.0 Dilated cardiomyopathy; N14.11 Contrast-induced nephropathy; Z11.52 Encounter for screening for COVID-19; E07.81 Sick-euthyroid syndrome; F17.210 Nicotine dependence, cigarettes, uncomplicated; T50.8X5A Adverse effect of diagnostic agents, initial encounter; I25.10 Atherosclerotic heart disease of native coronary artery without angina pectoris; I45.9 Conduction disorder, unspecified; D72.829 Elevated white blood cell count, unspecified; I95.9 Hypotension, unspecified; Z79.82 Long term (current) use of aspirin; Z79.899 Other long term (current) drug therapy; Z88.6 Allergy status to analgesic agent; Z91.041 Radiographic dye allergy status; Z91.013 Allergy to seafood; X58.XXXA Exposure to other specified factors, initial encounter; Z87.19 Personal history of other diseases of the digestive system
CPT/HCPCS: 36415; 71045; 71275; 76770; 80048; 80053; 80061; 81003; 82810; 83036; 83605; 83735; 83880; 84439; 84443; 84484; 85018; 85025; 85027; 85379; 85610; 85730; 87636; 93005; 93306; 93312; 93320; 93325; 93460; 94640; 96374; 96375; 99285

== ENCOUNTER 2024-11-13 15:04 | Emergency (ER) | payer BC ==
[2024-11-13] MEDS: ACETAMINOPHEN TAB 500 MG TAB PO STA (15:55)
[2024-11-13] MEDS: SODIUM CHLORIDE 0.9% 1,000 ML IV STA (15:57)
--- NOTE | 2024-11-13 16:00 | ED ---
Male Urogenital HPI - General Chief complaint: Urogenital Stated complaint: Groin pain Time Seen by Provider: 11/13/24 15:52 Source: patient, RN notes reviewed Mode of arrival: ambulatory Limitations: no limitations - History of Present Illness Initial comments: 53-year-old male presenting for left inguinal pain. States he has noticed a bulge in the left inguinal area for the past 2 weeks. Denies injury or trauma. States this morning he sneezed and since then symptoms have worsened. Reports worsening of pain when patient urinates or strains to have a bowel movement. Worse with sneezing. He does have a history of a hiatal hernia surgery. - Related Data Previous Rx's Medication Instructions Recorded Vericiguat [Verquvo] 2.5 mg PO DAILY 90 Days #90 tablet 10/07/24 Aspirin 81 mg PO DAILY 30 Days #30 tab 10/10/24 Atorvastatin [Lipitor] 40 mg PO HS 30 Days #30 tab 10/10/24 Bumetanide [BUMEX] 1 mg PO DAILY 30 Days #30 tab 10/10/24 Dapagliflozin Propanediol [Farxiga] 10 mg PO DAILY 30 Days #30 tab 10/10/24 Metoprolol Tartrate [Lopressor] 12.5 mg PO BID 30 Days #30 tab 10/10/24 Sacubitril/Valsartan [Entresto 24 1 each PO BID 30 Days #60 tab 10/10/24 mg-26 mg Tablet] Allergies Allergy/AdvReac Type Severity Reaction Status Date / Time ibuprofen [From Motrin] Allergy congestion Verified 11/13/24 15:11 & sneezing iodine Allergy Anaphylaxis Verified 11/13/24 15:11 to Shellfish shellfish derived [Shellfish] Allergy Anaphylaxis Verified 11/13/24 15:11 Review of Systems ROS Statement: Those systems with pertinent positive or pertinent negative responses have been documented in the HPI. ROS Other: All systems not noted in ROS Statement are negative. Past Medical History Past Medical History: Hypertension Additional Past Medical History / Comment(s): lt inguinal hernia and a "valve that doesn't close all th way" History of Any Multi-Drug Resistant Organisms: None Reported Past Surgical History: Hernia Repair Additional Past Surgical History / Comment(s): hiatal hernia repair. Past Psychological History: No Psychological Hx Reported Smoking Status: Current some day smoker, Former smoker Past Alcohol Use History: None Reported Past Drug Use History: None Reported General Exam Limitations: no limitations General appearance: alert, in no apparent distress Head exam: Present: atraumatic, normocephalic, normal inspection Eye exam: Present: normal appearance, PERRL, EOMI. Absent: scleral icterus, conjunctival injection, periorbital swelling GI/Abdominal exam: Present: soft, normal bowel sounds. Absent: distended, tenderness, guarding, rebound, rigid Neurological exam: Present: alert, oriented X3 Psychiatric exam: Present: normal affect, normal mood Skin exam: Present: warm, dry, intact, normal color. Absent: rash Course Vital Signs 11/13/24 11/13/24 15:08 17:51 Temperature 97.8 F 98.0 F Pulse Rate 74 18 L Respiratory 16 20 Rate Blood Pressure 167/69 156/70 O2 Sat by Pulse 97 98 Oximetry Medical Decision Making - Medical Decision Making Was pt. sent in by a medical professional or institution (, PA, AUTOMOTIVE LOT ATTENDANT, urgent care, hospital, or care home...) When possible be specific @ -No Did you speak to anyone other than the patient for history (EMS, parent, family, police, friend...)? What history was obtained from this source @ -No Did you review nursing and triage notes (agree or disagree)? Why? @ -I reviewed and agree with nursing and triage notes Were old charts reviewed (outside hosp., previous admission, EMS record, old EKG, old radiological studies, urgent care reports/EKG's, care home records)? Report findings @ -No old charts were reviewed Differential Diagnosis (chest pain, altered mental status, abdominal pain women, abdominal pain men, vaginal bleeding, weakness, fever, dyspnea, syncope, headache, dizziness, GI bleed, back pain, seizure, CVA, palpatations, mental health, musculoskeletal)? @ -Differential Abdominal Pain Men: Appendicitis, cholecystitis, diverticulosis, ischemic bowel, pancreatitis, hepatitis, UTI, gastroenteritis, AAA, incarcerated hernia, bowel obstruction, constipation, inflammatory bowel, hepatitis, peptic ulcer disease, splenic infarction, perforated viscus, testicular torsion, this is not meant to be an all-inclusive list EKG interpreted by me (3pts min.). @ -None X-rays interpreted by me (1pt min.). @ -None done CT interpreted by me (1pt min.). @ -CT abdomen pelvis reveals 6 cm inguinal hernia containing nonobstructed nonstrangulated small bowel loops U/S interpreted by me (1pt. min.). @ -None done What testing was considered but not performed or refused? (CT, X-rays, U/S, labs)? Why? @ -None What meds were considered but not given or refused? Why? @ -CT contrast would be preferred however patient has anaphylactic allergy to iodine Did you discuss the management of the patient with other professionals (professionals i.e. , PA, AUTOMOTIVE LOT ATTENDANT, lab, RT, psych nurse, social science instructor, art director, teacher, correctional security officer, upper caser)? Give summary @ -No Was smoking cessation discussed for >3mins.? @ -No Was critical care preformed (if so, how long)? @ -No Were there social determinants of health that impacted care today? How? (Homelessness, low income, unemployed, alcoholism, drug addiction, transportation, low edu. Level, literacy, decrease access to med. care, [facility], rehab)? @ -No Was there de-escalation of care discussed even if they declined (Discuss DNR or withdrawal of care, Hospice)? DNR status @ -No What co-morbidities impacted this encounter? (DM, HTN, Smoking, COPD, CAD, Can cer, CVA, ARF, Chemo, Hep., AIDS, mental health diagnosis, sleep apnea, morbid obesity)? @ -None Was patient admitted / discharged? Hospital course, mention meds given and route, prescriptions, significant lab abnormalities, going to OR and other pertinent info. @ - discharge. 53-year-old male presenting for left inguinal pain x 2 weeks. No signs of strangulation or obstruction on examination. Lab work remarkable for elevated creatinine and BUN however appears to be at baseline. Normal white blood cell count. No lactic acidosis. CT abdomen pelvis reveals 6 cm inguinal hernia containing nonobstructed nonstrangulated small bowel loops. Discussed results with patient. Advised to follow-up with general surgery. Appropriate return precautions and supportive care discussed. Case was discussed with my ED attending Dr. Merchant Undiagnosed new problem with uncertain prognosis? @ -No Drug Therapy requiring intensive monitoring for toxicity (Heparin, Nitro, Insulin, Cardizem)? @ -No Were any procedures done? @ -No Diagnosis/symptom? @ -Left inguinal hernia Acute, or Chronic, or Acute on Chronic? @ -Acute Uncomplicated (without systemic symptoms) or Complicated (systemic symptoms)? @ -Uncomplicated Side effects of treatment? @ -No Exacerbation, Progression, or Severe Exacerbation? @ -No Poses a threat to life or bodily function? How? (Chest pain, USA, OR, pneumonia, PE, COPD, DKA, ARF, appy, cholecystitis, CVA, Diverticulitis, Homicidal, Suicidal, threat to staff... and all critical care pts) @ -No - Lab Data Result diagrams: 11/13/24 15:57 11/13/24 15:57 Lab Results 11/13/24 11/13/24 11/13/24 Range/Units 15:57 15:57 15:57 WBC 7.28 (4.50-10.00) 10*3/uL RBC 5.75 H (4.40-5.60) 10*6/uL Hgb 16.6 (13.0-17.0) g/dL Hct 51.0 H (39.6-50.0) % MCV 88.7 (80.0-97.0) fL MCH 28.9 (27.0-32.0) pg MCHC 32.5 (32.0-37.0) g/dL Plt Count 237 (140-440) 10*3/uL MPV 11.6 (9.5-12.2) fL Immature Gran % (Auto) 0.1 % Neutrophils % 70.2 % Lymphocytes % 14.8 % Monocytes % 10.2 % Eosinophils % 3.6 % Basophils % 1.1 % Immature Gran # 0.01 (0.00-0.04) 10*3/uL Neutrophils # 5.11 (1.80-7.70) 10*3/uL Lymphocytes # 1.08 (0.90-5.00) 10*3/uL Monocytes # 0.74 (0.20-1.00) 10*3/uL Eosinophils # 0.26 (0.04-0.35) 10*3/uL Basophils # 0.08 (0.00-0.10) 10*3/uL Sodium 139 (137-145) mmol/L Potassium 5.1 (3.5-5.1) mmol/L Chloride 105 (98-107) mmol/L Carbon Dioxide 23 (22-30) mmol/L Anion Gap 11 mmol/L BUN 33 H (9-20) mg/dL Creatinine 1.70 H (0.66-1.25) mg/dL Est GFR (CKD-EPI)AfAm 52 (>60 ml/min/1.73 sqM) Est GFR (CKD-EPI)NonAf 45 (>60 ml/min/1.73 sqM) Glucose 101 H (74-99) mg/dL Plasma Lactic Acid Tanner 0.7 (0.7-2.0) mmol/L Calcium 10.1 (8.4-10.2) mg/dL Total Bilirubin 0.5 (0.2-1.3) mg/dL AST 29 (17-59) U/L ALT 25 (4-49) U/L Alkaline Phosphatase 97 (38-126) U/L Total Protein 7.1 (6.3-8.2) g/dL Albumin 4.2 (3.5-5.0) g/dL Urine Color Urine Appearance (Clear) Urine pH (5.0-8.0) Ur Specific [place] (1.001-1.035) Urine Protein (Negative) Urine Glucose (UA) (Negative) Urine Ketones (Negative) Urine Blood (Negative) Urine Nitrite (Negative) Urine Bilirubin (Negative) Urine Urobilinogen (<2.0) mg/dL Ur Leukocyte Esterase (Negative) 11/13/24 Range/Units 16:03 WBC (4.50-10.00) 10*3/uL RBC (4.40-5.60) 10*6/uL Hgb (13.0-17.0) g/dL Hct (39.6-50.0) % MCV (80.0-97.0) fL MCH (27.0-32.0) pg MCHC (32.0-37.0) g/dL Plt Count (140-440) 10*3/uL MPV (9.5-12.2) fL Immature Gran % (Auto) % Neutrophils % % Lymphocytes % % Monocytes % % Eosinophils % % Basophils % % Immature Gran # (0.00-0.04) 10*3/uL Neutrophils # (1.80-7.70) 10*3/uL Lymphocytes # (0.90-5.00) 10*3/uL Monocytes # (0.20-1.00) 10*3/uL Eosinophils # (0.04-0.35) 10*3/uL Basophils # (0.00-0.10) 10*3/uL Sodium (137-145) mmol/L Potassium (3.5-5.1) mmol/L Chloride (98-107) mmol/L Carbon Dioxide (22-30) mmol/L Anion Gap mmol/L BUN (9-20) mg/dL Creatinine (0.66-1.25) mg/dL Est GFR (CKD-EPI)AfAm (>60 ml/min/1.73 sqM) Est GFR (CKD-EPI)NonAf (>60 ml/min/1.73 sqM) Glucose (74-99) mg/dL Plasma Lactic Acid Tanner (0.7-2.0) mmol/L Calcium (8.4-10.2) mg/dL Total Bilirubin (0.2-1.3) mg/dL AST (17-59) U/L ALT (4-49) U/L Alkaline Phosphatase (38-126) U/L Total Protein (6.3-8.2) g/dL Albumin (3.5-5.0) g/dL Urine Color Colorless Urine Appearance Clear (Clear) Urine pH 5.5 (5.0-8.0) Ur Specific [place] 1.016 (1.001-1.035) Urine Protein Negative (Negative) Urine Glucose (UA) 4+ H (Negative) Urine Ketones Negative (Negative) Urine Blood Negative (Negative) Urine Nitrite Negative (Negative) Urine Bilirubin Negative (Negative) Urine Urobilinogen <2.0 (<2.0) mg/dL Ur Leukocyte Esterase Negative (Negative) Disposition Clinical Impression: Left inguinal hernia Disposition: HOME SELF-CARE Condition: Stable Instructions (If sedation given, give patient instructions): Inguinal Hernia (ED) Additional Instructions: Follow-up with general surgery as discussed. Avoid heavy lifting. Please return to the Emergency Department if symptoms worsen or any other concerns. Is patient prescribed a controlled substance at d/c from ED?: No Referrals: None,Stated [Primary Care Provider] - 1-2 days Hugo Barry MD [STAFF PHYSICIAN] - 1-2 days Time of Disposition: 17:45
[2024-11-13 16:09] LABS: Bilirubin,Urine Negative (Negative); Blood,Urine Negative (Negative); Color,Urine Colorless; Glucose,Urine (UA) 4+ (Negative); Ketones,Urine Negative (Negative); Leukocyte Esterase,Urine Negative (Negative); Nitrite,Urine Negative (Negative); PH, Urine 5.5 (5.0-8.0); Protein,Urine Negative (Negative); Specific Gravity,Urine 1.016 (1.001-1.035); Urobilinogen,Urine <2.0 mg/dL (<2.0)
[2024-11-13 16:11] LABS: Basophils # (A) 0.08 10*3/uL (0.00-0.10); Basophils % (A) 1.1 %; Eosinophils # (A) 0.26 10*3/uL (0.04-0.35); Eosinophils % (A) 3.6 %; HCT 51.0 % (39.6-50.0); HGB 16.6 g/dL (13.0-17.0); Lymphocytes # (A) 1.08 10*3/uL (0.90-5.00); Lymphocytes % (A) 14.8 %; MCH 28.9 pg (27.0-32.0); MCHC 32.5 g/dL (32.0-37.0); MCV 88.7 fL (80.0-97.0); Monocytes # (A) 0.74 10*3/uL (0.20-1.00); Monocytes % (A) 10.2 %; Neutrophils # (A) 5.11 10*3/uL (1.80-7.70); Neutrophils % (A) 70.2 %; Platelet Count 237 10*3/uL (140-440); RBC 5.75 10*6/uL (4.40-5.60); RDW 18.1 % (11.5-14.5); WBC 7.28 10*3/uL (4.50-10.00)
--- NOTE | 2024-11-13 16:23 | CT ---
EXAMINATION TYPE: CT abdomen pelvis wo con DATE OF EXAM: 11/13/2024 COMPARISON: None CLINICAL INDICATION: Male, 53 years old with history of left inguinal hernia; PHH, left inguinal jerel ia TECHNIQUE: CT scan of the abdomen and pelvis is performed without oral or IV contrast. CT DLP: 1323.[address] CTDI: mGy Automated exposure control for dose reduction was used. FINDINGS: Within the limitations of a non-contrast study, the following observations are made. The lungs are clear. Gallbladder is normal and there is no gallstone, wall thickening, pericholecystic fluid or distention . There is no biliary ductal dilatation. There is no organomegaly of the liver, pancreas, spleen or adrenal glands. There are no renal calcifications or hydronephrosis. The caliber of the abdominal aorta is normal and there is no retroperitoneal adenopathy or hemorrhage . The bowel loops are normal in caliber is no evidence of obstruction. No inflammatory changes are iden tified in the mesentery and there is no free intraperitoneal air or fluid. There is a 6 cm left inguinal hernia containing small bowel loops but there is no bowel obstruction o r strangulation. The osseous structures are intact. IMPRESSION: 6 cm inguinal hernia containing nonobstructed non-strangulated small bowel loops. [facility], , 11/13/2024 4:21 PM
[2024-11-13 16:27] LABS: ALT 25 U/L (4-49); AST 29 U/L (17-59); African American GFR (CKD) 52 (>60 ml/min/1.73 sqM); Albumin 4.2 g/dL (3.5-5.0); Alkaline Phosphatase 97 U/L (38-126); Anion Gap 11 mmol/L; Blood Urea Nitrogen 33 mg/dL (9-20); Calcium 10.1 mg/dL (8.4-10.2); Carbon Dioxide 23 mmol/L (22-30); Chloride 105 mmol/L (98-107); Glucose 101 mg/dL (74-99); Non-African American GFR(CKD) 45 (>60 ml/min/1.73 sqM); Potassium 5.1 mmol/L (3.5-5.1); Sodium 139 mmol/L (137-145); Total Protein 7.1 g/dL (6.3-8.2)
[2024-11-13 17:53] VITALS: BP 156/70; PULSE 18; RESP 20; TEMP 98
== END 2024-11-13 17:53 | disposition home or self-care (01) ==
LOC: EC 15:04
DX: K40.90 Unilateral inguinal hernia, without obstruction or gangrene, not specified as recurrent (principal); F17.200 Nicotine dependence, unspecified, uncomplicated; Z91.013 Allergy to seafood; Z88.6 Allergy status to analgesic agent; Z91.041 Radiographic dye allergy status
CPT/HCPCS: 36415; 74176; 80053; 81003; 83605; 85025; 96360; 99284

== ENCOUNTER → 2024-11-22 | Outpatient (CLI) | payer BC ==
[2024-11-22 18:19] LABS: HCT 52.2 % (39.6-50.0); HGB 16.4 g/dL (13.0-17.0); MCH 27.7 pg (27.0-32.0); MCHC 31.4 g/dL (32.0-37.0); MCV 88.3 FL (80.0-97.0); NRBC Per 100 WBC 0 X 10*3/uL (0.00-0.01); Platelet Count 281 X 10*3/uL (140-440); RBC 5.91 X 10*6/uL (4.40-5.60); RDW 19.2 % (11.5-14.5); WBC 9.53 X 10*3/uL (4.50-10.00)
== END | disposition home or self-care (01) ==
LOC: LABPAT 11:55
PROVIDERS: ATTEND Surgery
DX: Z01.812 Encounter for preprocedural laboratory examination (principal); K40.90 Unilateral inguinal hernia, without obstruction or gangrene, not specified as recurrent
CPT/HCPCS: 85027; 86850; 86900; 86901

== ENCOUNTER 2024-11-27 06:10 | Day surgery (SDC) | payer BC ==
[2024-11-25 11:07] VITALS: BMI 36.6
[~2024-11-27 06:10] MED LIST: LIDOCAINE 1% (10MG/ML) FOR IV START INTRADERMA PRN; droPERidol 2.5 MG/ML VIAL IVP ONE
[2024-11-27] MEDS ORDERED: HYDROmorphone 0.5 MG/0.5 ML SYRINGE IVP PRN (07:00)
[2024-11-27] MEDS: LACTATED RINGERS 1,000 ML IV SCH (07:10)
[2024-11-27] MEDS: DEXAMETHASONE SOD PHOSPHATE 4 MG/ML 1 ML VIAL IV ONE (07:11)
[2024-11-27] MEDS: ONDANSETRON 4 MG/2 ML VIAL IVP ONE (07:11)
[2024-11-27] MEDS: IV FLUID CONTINUATION 1,000 ML IV ONE (07:12)
[2024-11-27] MEDS: ACETAMINOPHEN TAB 500 MG TAB PO PRN (07:12)
[2024-11-27] MEDS: HEPARIN SODIUM,PORCINE 5,000 UNIT/ML 1 ML VIAL SQ PRN (07:14)
[2024-11-27] MEDS: MIDAZOLAM 2 MG/2 ML VIAL IV ONE (08:06)
[2024-11-27] MEDS ORDERED: GLYCOPYRROLATE 0.2 MG/ML 2 ML VIAL ONE (08:24)
[2024-11-27] MEDS ORDERED: SODIUM CHLORIDE 0.9% (PF) 10 ML VIAL ONE (08:24)
[2024-11-27] MEDS ORDERED: DEXAMETHASONE SOD PHOSPHATE 4 MG/ML 1 ML VIAL ONE (08:24)
[2024-11-27] MEDS ORDERED: SUCCINYLCHOLINE CHLORIDE 200 MG/10 ML VIAL IV ONE (08:24)
[2024-11-27] MEDS ORDERED: KETAMINE HCL IN 0.9 % NACL 50 MG/5 ML SYRINGE ONE (08:24)
[2024-11-27] MEDS ORDERED: ETOMIDATE 2 MG/ML 10 ML VIAL ONE (08:24)
[2024-11-27] MEDS ORDERED: NEOSTIGMINE 1 MG/ML 10 ML VIAL ONE (08:24)
[2024-11-27] MEDS ORDERED: ROCURONIUM 10 MG/ML (5 ML VIAL) IV ONE (08:24)
[2024-11-27] MEDS ORDERED: LIDOCAINE 1% INJ 10MG/ML (20 ML MDV) ONE (08:24)
[2024-11-27] MEDS ORDERED: LIDOCAINE 4% LTA KIT (4 ML) TOPICAL ONE (08:24)
[2024-11-27] MEDS ORDERED: fentaNYL (PF) 50 MCG/ML 2 ML AMP ONE (08:24)
[2024-11-27] MEDS ORDERED: ROPIVACAINE 5 MG/ML 30 ML VIAL ONE (08:24)
[2024-11-27] MEDS: LIDOCAINE 1%-EPI 1:100,000 20 ML VIAL SQ ONE (09:25)
[2024-11-27 09:46] VITALS: RESP 16; TEMP 98
--- NOTE | 2024-11-27 09:55 | P.OP ---
Date of Procedure: 11/27/24 Preoperative Diagnosis: Incarcerated left inguinal hernia Postoperative Diagnosis: Same Procedure(s) Performed: Laparoscopic robotic repair of incarcerated left inguinal hernia Left cord lipoma excision Transversus abdominis plane block Anesthesia: JOSH Surgeon: Hugo Barry Estimated Blood Loss (ml): 5 Pathology: other (Left cord lipoma) Condition: stable Disposition: PACU Description of Procedure: The patient's placed on the operating table in the supine position. The patient received general anesthesia. The patient's abdomen was prepped and draped in usual sterile fashion. The skin was anesthetized 1% local Xylocaine at the incision sites. Using an 11 blade a skin incision was made at the umbilicus. The fascia was grasped with a Horicon and then the peritoneal cavity was entered with the Veress needle. Position of the Veress needle was confirmed with a posi tive drop test. After adequate insufflation a 5 mm trocar was placed into the peritoneal cavity. The Laparoscope was placed the peritoneal cavity. And a robotic 8 mm trocar was placed in the right lateral position and then another 8 mm robotic trochars placed in the left lateral position. The original 5 mm trocar was exchanged for a 8 mm trocar. A four quadrant transversus abdominal bloc was performed with 1% local xylocaine. The patient was placed in reverse Trendelenburg and then the patient was docked to the robot. Next the peritoneum over top of the hernia was incised and then using blunt and sharp dissection and electrocautery the hernia sac was dissected free from the floor of the inguinal canal. The hernia sac was completely reduced into the peritoneal cavity. The cord lipoma was diseected free and sent to pathology And then using the Pro business unit controller mesh the hernia was repaired. The peritoneum was then sutured with 20V lock suture. The patient was then undocked the robot. The needle was withdrawn from the peritoneal cavity. The umbilical trocar site was closed with 0 Ethibond suture. The skin was closed interrupted 3-0 Monocryl suture. Dermabond dressing was applied. Patient was sent to recovery in stable condition.
[2024-11-27 11:29] VITALS: BP 160/80; PULSE 72
--- NOTE | 2024-11-27 19:54 | P.ANPRN ---
Procedure Note - Anesthesia - Nerve Block Performed Bilateral Erector Spinae Single Time Out Performed: Yes Date of Procedure: 11/27/24 Procedure Start Time: : Procedure Stop Time: 08:11 Location of Patient: PreOp Indication: Acute Post-Operative Pain, Requested by Surgeon Sedation Type: Sedate with meaningful contact maintained Preparation: Sterile Prep Position: Prone Needle Types: Pajunk Needle Gauge: 21 Ultrasound used to visualize needle placement: Yes Ultrasound used to observe medication spread: Yes Blood Aspirated: No Pain Paresthesia on Injection Noted: No Resistance on Injection: Normal Image Stored and Saved: Yes Events: Uneventful and Well Tolerated (Ropivacaine 0.5% 15 cc plus dexamethasone 4 mg plus normal saline 10 cc given bilaterally at L1)
== END 2024-11-27 11:15 ==
LOC: OR 06:10
PROVIDERS: ATTEND Surgery
DX: K40.30 Unilateral inguinal hernia, with obstruction, without gangrene, not specified as recurrent (principal); G89.18 Other acute postprocedural pain
CPT/HCPCS: 49650; S2900; 64468; 88304